=== PATIENT | female | born 1955 | race Caucasian/White ===

== ENCOUNTER 2018-06-05 18:38 | Inpatient (IN) | payer OTHER, MEDICAID ==
[~2018-06-05] VITALS: Ht 165.1 cm; Wt 75.9 kg
[~2018-06-05 18:38] MED LIST: GABA300C; HYDR25TA4; LEVO125T59; NOR10T
[2018-06-05] MEDS ORDERED: ACETYLCYSTEINE IV ONE (19:15)
[2018-06-05] MEDS ORDERED: D5W 5% IV ONE (19:15)
[2018-06-05] MEDS ORDERED: SODIUM CHLORIDE 0.9% 1,000 ML IV ONE (19:15)
[2018-06-05 19:47] LABS: Basophils # (auto) 0.1 uL; Basophils % (auto) 0.4 % (0.0-2.0); Eosinophils # (auto) 0.2 uL; Eosinophils % (auto) 1.3 % (0.0-7.0); Hematocrit 45.3 % (36.0-46.0); Hemoglobin 15.2 g/dL (12.2-16.2); Lymphocytes % (auto) 20.2 % (10.0-50.0); Mean Corpuscular Hemoglobin 32.3 pg (28.0-32.0); Mean Corpuscular Hgb Conc. 33.5 g/dL (32.0-36.0); Mean Corpuscular Volume 96.4 fL (80.0-100.0); Monocytes # (auto) 1.1 uL; Monocytes % (auto) 7.2 % (0.0-12.0); Neutrophils # (auto) 10.6 uL; Neutrophils % (auto) 70.9 % (37.0-80.0); Platelet Count (auto) 219 10^3/uL (140-450); Red Cell Distribution Width 14.3 % (11.8-14.3); White Blood Cell 14.9 10^3/uL (4.4-10.8)
[2018-06-05 19:55] LABS: Urine Bacteria FEW /hpf (None Seen); Urine Blood Negative /uL (Negative); Urine Mucus FEW (None Seen); Urine Specific Gravity 1.009 (1.001-1.035); Urine WBC 14 /hpf (0 - 5)
[2018-06-05 20:03] LABS: Alanine Aminotransferase 54 U/L (13-56); Albumin 4.3 g/dL (3.4-5.0); Anion Gap 9 (5-15); Aspartate Aminotransferase 45 U/L (15-37); Blood Alcohol < 3.0 mg/dL (0-5); Blood Urea Nitrogen 21 mg/dL (7-18); Calcium 9.7 mg/dL (8.5-10.1); Carbon Dioxide 26 mmol/L (21-32); Chloride 103 mmol/L (98-107); Glucose 153 mg/dL (74-106); Magnesium 2.1 mg/dL (1.6-2.6); Potassium 3.1 mmol/L (3.5-5.1); Sodium 138 mmol/L (136-145)
[2018-06-05 20:06] LABS: Alcohol, Urine < 3.0 mg/dL (0-5); Amphetamine Screen, Urine NEGATIVE (NEGATIVE); Barbiturate Scree,Urine NEGATIVE (NEGATIVE); Benzodiazephine Screen, Urine NEGATIVE (NEGATIVE); Cannabinoid Screen, Urine POSITIVE (NEGATIVE); Cocaine Screen, Urine NEGATIVE (NEGATIVE); Opiate Scree,Urine NEGATIVE (NEGATIVE); Phencyclidine Screen, Urine NEGATIVE (NEGATIVE)
[2018-06-05 20:08] LABS: Alkaline Phosphatase 107 U/L (45-117); BUN/Creatinine Ratio 16.7; Bilirubin, Total 0.4 mg/dL (0.2-1.0); GFR African American 55 mL/min; GFR Non-African American 46 mL/min; Total Protein 8.5 g/dL (6.4-8.2)
[2018-06-05 20:18] LABS: Salicylate 4.6 mg/dL (2.8-20.0)
[2018-06-05 20:19] LABS: Acetaminophen < 2.0 ug/mL (10-30)
[2018-06-05 20:20] LABS: Lactic Acid w/Reflex 2.9 mmol/L (0.4-2.0)
[2018-06-05] MEDS: LORazepam 2MG/ML-1ML VIAL IV PRN (21:09)
[2018-06-06] MEDS ORDERED: cefTRIAXone 1GM/50ML D5W 50 ML IV ONE (00:45)
[2018-06-06] MEDS ORDERED: ONDANSETRON HCL 4 MG/2 ML VIAL IV PRN (04:30)
[2018-06-06] MEDS: SODIUM CHLORIDE 0.9% 1,000 ML IV SCH (04:46)
[2018-06-06] MEDS ORDERED: POTASSIUM CHL 20MEQ/100ML 100 ML IV ONE (05:30)
[2018-06-06 05:45] VITALS: BP 157/78
[2018-06-06] MEDS: LEVOTHYROXINE SODIUM 50 MCG TAB PO SCH (06:15)
[2018-06-06 08:00] VITALS: BP 149/90
[2018-06-06] MEDS ORDERED: CYCL1TAB18 PO (08:46)
[2018-06-06] MEDS ORDERED: NORT25CA PO (08:46)
[2018-06-06] MEDS ORDERED: HYDR25TA4 PO (08:46)
[2018-06-06] MEDS ORDERED: PANT40TA2 PO (08:46)
[2018-06-06] MEDS ORDERED: HYDR-4683 PO (08:46)
[2018-06-06] MEDS ORDERED: DOCU100T15 PO (08:46)
[2018-06-06] MEDS ORDERED: LEVO150T10 PO (08:46)
[2018-06-06] MEDS ORDERED: PREG75CA PO (08:46)
[2018-06-06] MEDS ORDERED: OMEG1CAP59 PO (08:46)
[2018-06-06] MEDS ORDERED: PAR20T PO (08:46)
[2018-06-06 09:33] LABS: Basophils # (auto) 0.1 uL; Basophils % (auto) 0.7 % (0.0-2.0); Eosinophils # (auto) 0.1 uL; Eosinophils % (auto) 0.9 % (0.0-7.0); Hematocrit 43.3 % (36.0-46.0); Hemoglobin 14.6 g/dL (12.2-16.2); Lymphocytes # (auto) 2.7 uL; Lymphocytes % (auto) 28.6 % (10.0-50.0); Mean Corpuscular Hemoglobin 32.1 pg (28.0-32.0); Mean Corpuscular Hgb Conc. 33.6 g/dL (32.0-36.0); Mean Corpuscular Volume 95.5 fL (80.0-100.0); Monocytes # (auto) 0.9 uL; Neutrophils # (auto) 5.6 uL; Neutrophils % (auto) 59.8 % (37.0-80.0); Platelet Count (auto) 197 10^3/uL (140-450); Red Blood Cells 4.53 10^6/uL (4.0-5.20); White Blood Cell 9.3 10^3/uL (4.4-10.8)
[2018-06-06 09:47] LABS: Calcium 8.9 mg/dL (8.5-10.1); Potassium 3.3 mmol/L (3.5-5.1)
[2018-06-06] MEDS: ACETAMINOPHEN 500 MG TAB PO PRN (12:55)
[2018-06-06 13:00] VITALS: BP 143/80
[2018-06-06 15:37] LABS: Albumin 3.5 g/dL (3.4-5.0); Bilirubin, Direct 0.1 mg/dL (0-0.2)
[2018-06-06 15:40] LABS: Bilirubin, Total 0.5 mg/dL (0.2-1.0); Total Protein 7.2 g/dL (6.4-8.2)
[2018-06-06] MEDS ORDERED: HCTZ 25 MG TAB PO ONE (16:00)
[2018-06-06 17:00] VITALS: BP 130/77
[2018-06-06] MEDS: cefTRIAXone 1GM/50ML D5W 50 ML IV SCH (21:08)
[2018-06-06 21:30] VITALS: BP 130/85
[2018-06-06] MEDS: LORazepam 2MG/ML-1ML VIAL IV PRN (22:11)
[2018-06-07] MEDS: SODIUM CHLORIDE 0.9% 1,000 ML IV SCH (00:30)
[2018-06-07 05:00] VITALS: BP 121/77
[2018-06-07 06:21] LABS: Albumin 3.7 g/dL (3.4-5.0); Calcium 9.3 mg/dL (8.5-10.1); Magnesium 2.6 mg/dL (1.6-2.6); Potassium 3.7 mmol/L (3.5-5.1)
[2018-06-07 06:28] LABS: Bilirubin, Total 0.4 mg/dL (0.2-1.0); Total Protein 7.8 g/dL (6.4-8.2)
[2018-06-07] MEDS: LEVOTHYROXINE SODIUM 50 MCG TAB PO SCH (06:35)
[2018-06-07 09:00] VITALS: BP 122/78
[2018-06-07] MEDS: HCTZ 25 MG TAB PO SCH (09:47)
[2018-06-07 13:00] VITALS: BP 138/82
[2018-06-07 17:00] VITALS: BP 147/93
[2018-06-07] MEDS: ACETAMINOPHEN 500 MG TAB PO PRN (19:53)
[2018-06-07] MEDS: LORazepam 2MG/ML-1ML VIAL IV PRN (21:13)
[2018-06-07] MEDS: cefTRIAXone 1GM/50ML D5W 50 ML IV SCH (21:13)
[2018-06-08 06:02] VITALS: BP 108/64
[2018-06-08] MEDS: LEVOTHYROXINE SODIUM 50 MCG TAB PO SCH (06:31)
[2018-06-08 06:59] LABS: Albumin 3.5 g/dL (3.4-5.0); Bilirubin, Direct 0.1 mg/dL (0-0.2); Bilirubin, Total 0.4 mg/dL (0.2-1.0); Total Protein 7.6 g/dL (6.4-8.2)
[2018-06-08 08:30] VITALS: BP 146/93
[2018-06-08] MEDS: HCTZ 25 MG TAB PO SCH (09:29)
[2018-06-08] MEDS: ACETAMINOPHEN 500 MG TAB PO PRN ×2 (10:53→21:02)
[2018-06-08 12:00] VITALS: BP 135/74
[2018-06-08 16:00] VITALS: BP 143/95
[2018-06-08] MEDS: cefTRIAXone 1GM/50ML D5W 50 ML IV SCH (21:01)
[2018-06-08] MEDS: LORazepam 2MG/ML-1ML VIAL IV PRN (21:02)
[2018-06-08 22:00] VITALS: BP 107/77
[2018-06-08] MEDS: DOCUSATE SOD 100 MG CAP PO SCH (23:18)
[2018-06-09 05:40] VITALS: BP 136/81
[2018-06-09] MEDS: LEVOTHYROXINE SODIUM 50 MCG TAB PO SCH (06:10)
[2018-06-09 07:11] LABS: Basophils # (auto) 0.1 uL; Basophils % (auto) 0.9 % (0.0-2.0); Eosinophils # (auto) 0.4 uL; Eosinophils % (auto) 5.3 % (0.0-7.0); Hematocrit 47.6 % (36.0-46.0); Hemoglobin 16.3 g/dL (12.2-16.2); Lymphocytes # (auto) 2.7 uL; Lymphocytes % (auto) 31.7 % (10.0-50.0); Mean Corpuscular Hgb Conc. 34.2 g/dL (32.0-36.0); Mean Corpuscular Volume 96.4 fL (80.0-100.0); Monocytes # (auto) 0.9 uL; Monocytes % (auto) 10.7 % (0.0-12.0); Neutrophils # (auto) 4.3 uL; Neutrophils % (auto) 51.4 % (37.0-80.0); Nucleated Red Blood Cells % 0.1 %; Platelet Count (auto) 203 10^3/uL (140-450); Red Blood Cells 4.94 10^6/uL (4.0-5.20); Red Cell Distribution Width 13.8 % (11.8-14.3); White Blood Cell 8.4 10^3/uL (4.4-10.8)
[2018-06-09 07:35] LABS: BUN/Creatinine Ratio 16.4; Calcium 9.4 mg/dL (8.5-10.1); Potassium 3.2 mmol/L (3.5-5.1)
[2018-06-09] MEDS: LORazepam 2MG/ML-1ML VIAL IV PRN ×2 (08:00→21:24)
[2018-06-09 08:30] VITALS: BP 127/93
[2018-06-09 09:00] VITALS: BP 127/93
[2018-06-09] MEDS: HCTZ 25 MG TAB PO SCH (09:06)
[2018-06-09] MEDS: DOCUSATE SOD 100 MG CAP PO SCH ×2 (09:06→21:25)
[2018-06-09] MEDS ORDERED: POTASSIUM CHL 20 Meq TABLET PO ONE (12:45)
[2018-06-09 13:00] VITALS: BP 141/89
[2018-06-09] MEDS: ACETAMINOPHEN 500 MG TAB PO PRN ×2 (15:27→21:24)
[2018-06-09 17:00] VITALS: BP 138/80
[2018-06-09] MEDS: cefTRIAXone 1GM/50ML D5W 50 ML IV SCH (21:24)
[2018-06-09 22:00] VITALS: BP 118/74
[2018-06-10 05:00] VITALS: BP 124/77
[2018-06-10 06:32] LABS: BUN/Creatinine Ratio 21.6; Calcium 9.4 mg/dL (8.5-10.1); Potassium 3.8 mmol/L (3.5-5.1)
[2018-06-10] MEDS: LEVOTHYROXINE SODIUM 50 MCG TAB PO SCH (06:45)
[2018-06-10] MEDS: ACETAMINOPHEN 500 MG TAB PO PRN ×2 (06:45→21:41)
[2018-06-10 08:50] VITALS: BP 117/90
[2018-06-10] MEDS: HCTZ 25 MG TAB PO SCH (11:23)
[2018-06-10] MEDS: DOCUSATE SOD 100 MG CAP PO SCH ×2 (11:24→21:41)
[2018-06-10 13:55] VITALS: BP 115/78
[2018-06-10] MEDS: LORazepam 2MG/ML-1ML VIAL IV PRN ×2 (14:02→21:41)
[2018-06-10] MEDS: SODIUM CHLORIDE 0.9% 1,000 ML IV SCH (14:08)
[2018-06-10 22:00] VITALS: BP 118/78
[2018-06-11 05:00] VITALS: BP 157/82
[2018-06-11 05:21] VITALS: BP 112/54
[2018-06-11] MEDS: LEVOTHYROXINE SODIUM 50 MCG TAB PO SCH (06:45)
[2018-06-11 07:44] LABS: BUN/Creatinine Ratio 22.1; Calcium 9.5 mg/dL (8.5-10.1)
[2018-06-11 09:00] VITALS: BP 149/95
[2018-06-11] MEDS: DOCUSATE SOD 100 MG CAP PO SCH ×2 (11:30→22:27)
[2018-06-11] MEDS: HCTZ 25 MG TAB PO SCH (11:30)
[2018-06-11 13:00] VITALS: BP 113/89
[2018-06-11 17:00] VITALS: BP 123/83
[2018-06-11] MEDS: ACETAMINOPHEN 500 MG TAB PO PRN ×2 (17:10→23:24)
[2018-06-11 20:00] VITALS: BP 157/82
[2018-06-11] MEDS: LORazepam 2MG/ML-1ML VIAL IV PRN (22:27)
[2018-06-12] MEDS: SODIUM CHLORIDE 0.9% 1,000 ML IV SCH (04:27)
[2018-06-12 05:00] VITALS: BP 121/69
[2018-06-12] MEDS: LEVOTHYROXINE SODIUM 50 MCG TAB PO SCH (06:42)
[2018-06-12 08:00] VITALS: BP 155/91
[2018-06-12 09:00] VITALS: BP 155/91
[2018-06-12] MEDS: DOCUSATE SOD 100 MG CAP PO SCH (09:37)
[2018-06-12] MEDS: HCTZ 25 MG TAB PO SCH (09:37)
[2018-06-12 12:59] VITALS: BP 144/93
[2018-06-12 16:08] VITALS: BP 144/93
== END 2018-06-12 17:27 | disposition home or self-care (01) | DRG 917 ==
LOC: EDBD 18:38 → ER 18:44 → TELE 18:45 → TELE-WESTW 06-06 05:45 → WEST WING 06-12 12:58
PROVIDERS: ADMIT Nurse Practitioner Family; ATTEND Internal Medicine
DX: T48.1X2A Poisoning by skeletal muscle relaxants [neuromuscular blocking agents], intentional self-harm, initial encounter (principal); G92 Toxic encephalopathy; N17.0 Acute kidney failure with tubular necrosis; N39.0 Urinary tract infection, site not specified; E87.6 Hypokalemia; E03.9 Hypothyroidism, unspecified; R73.9 Hyperglycemia, unspecified; F32.9 Major depressive disorder, single episode, unspecified; F41.9 Anxiety disorder, unspecified; F43.20 Adjustment disorder, unspecified; I10 Essential (primary) hypertension; E86.0 Dehydration; F43.10 Post-traumatic stress disorder, unspecified; Z90.710 Acquired absence of both cervix and uterus; Y92.89 Other specified places as the place of occurrence of the external cause; Z88.5 Allergy status to narcotic agent; Z88.8 Allergy status to other drugs, medicaments and biological substances; Z90.49 Acquired absence of other specified parts of digestive tract; Z79.899 Other long term (current) drug therapy
CPT/HCPCS: 36415; 36600; 51702; 70450; 71045; 72125; 80048; 80053; 80076; 80307; 80320; 80329; 81001; 82140; 82805; 83605; 83735; 84132; 84443; 84484; 85025; 87040; 87077; 87086; 87186; 93005; 96361; 96365; 96375; A4565; A6257; G0378; J0696; J3480; J7060

== ENCOUNTER 2024-08-25 17:40 | Inpatient (IN) | payer OTHER ==
[~2024-08-25] VITALS: Ht 160 cm; Wt 56.7 kg
[~2024-08-25 17:40] MED LIST changes: +DOCU100T15 PO; -GABA300C; +HYDR-4833 PO; -HYDR25TA4; +HYDR25TA4 PO; -LEVO125T59; +LEVO150T10 PO; -NOR10T; +NORT25CA PO; +OMEG1CAP59 PO; +PANT40TA2 PO; +PAR20T PO; +PREG75CA PO
--- NOTE | 2024-08-25 18:20 | ED.PDOC ---
GI ASSESSMENT HPI Comments 68 Y F brought in by ambulance with PMHX of HLD and HTN presents to the ED for CC of abdominal pain. Patient states, that she has been experiencing abdominal pain with associated symptoms of nausea, vomiting, and diarrhea x1week. Patient denies dark stool, dysuria, hematuria, constipation, or hematemesis. Chief Complaint: Abdominal Pain Time Seen by MD: 18:00 Primary Care Provider: ADAM Reviewed Notes: Nurses Notes, Medications, Allergies (Allergies listed above) Allergies: Coded Allergies: Codeine (Verified Allergy, Mild, 12/10/10) Morphine (Verified Allergy, Mild, 12/10/10) Home Meds Reported Medications Pregabalin (Lyrica) 75 Mg Cap, 75 MG PO TID, CAP 06/06/18 Pantoprazole Sodium Sesquihydr (Protonix) 40 Mg Tab, 40 MG PO DAILY, #30 TAB 06/06/18 Levothyroxine Sodium (Levothyroxine Sodium) 150 Mcg Tab, 150 MCG PO QAM for 30 Days 06/06/18 Nortriptyline Hcl (PAMELOR CAPSULE) 25 Mg Cp, 1 CAP PO QPM, #30 CAP 3 Refills 06/06/18 Docusate Sodium (Docusate Sodium) 100 Mg Tab, 100 MG PO DAILYP PRN for FOR CONSTIPATION for 30 Days, MG 06/06/18 Lee-3 Fatty Acids (Lee 3 500 500 mg) 1 Cap Cap, 2 CAP PO DAILY, CAP 06/06/18 Paroxetine (PAXIL TABLET) 20 Mg Tb, 1 TAB PO DAILY, #30 TAB 5 Refills 30 mg daily 06/06/18 Hydrocodone-Acetaminophen (Waldron 5/325MG) 1 Tab Tb, 1 TAB PO TID for pain, #90 TAB 06/06/18 Hydrochlorothiazide (Hydrochlorothiazide) 25 Mg Tab, 25 MG PO DAILY for 30 Days, MG 06/06/18 Past Medical History PAST MEDICAL HISTORY: Cancer, COPD, High Lipids, HTN, Thyroid Past Medical History (Other): hepatitis c Surgical History: Cholecystectomy, Hysterectomy [employer] History: No Pertinent [employer] History Family History Family History: Pt Confused Social History Smoker: Non-Smoker Alcohol: Denies ETOH Use Drugs: Marijuana Lives In: Home Constitutional: denies: chills, diaphoresis, fatigue, fever, malaise, sweats, weakness, others EENTM: denies: blurred vision, double vision, ear bleeding, ear discharge, ear drainage, ear pain, ear ringing, eye pain, eye redness, hearing loss, mouth pain, mouth swelling, nasal discharge, nose bleeding, nose congestion, nose pain, photophobia, tearing, throat pain, throat swelling, voice changes, others Respiratory: denies: cough, hemoptysis, orthopnea, SOB at rest, shortness of breath, SOB with excertion, stridor, wheezing, others Cardiovascular: denies: chest pain, dizzy spells, diaphoresis, Dyspnea on exertion, edema, irregular heart beat, left arm pain, lightheadedness, palpitations, PND, syncope, others Gastrointestinal: reports: abdominal pain, diarrhea, nausea, vomiting; denies: abdomen distended, blood streaked bowels, constipated, dysphagia, difficulty swallowing, hematemesis, melena, poor appetite, poor fluid intake, rectal bleeding, rectal pain, others Genitourinary: denies: abnormal vagina bleeding, burning, dyspareunia, dysuria, flank pain, frequency, hematuria, incontinence, pain, , vagina discharge, urgency, others Neurological: denies: dizziness, fainting, headache, left sided numbness, left sided weakness, numbness, paresthesia, pre-existing deficit, right sided numbness, right sided weakness, seizure, speech problems, tingling, tremors, weakness, others Musculoskeletal: denies: back pain, gout, joint pain, joint swelling, muscle pain, muscle stiffness, neck pain, others Integumetry: denies: bruises, change in color, change in hair/nails, dryness, laceration, lesions, lumps, rash, wounds, others Allergic/Immunocompromised: denies: Difficulty Healing, Frequent Infections, Hives, Itching, others Hematologic/Lymphatic: denies: anemia, blood clots, easy bleeding, easy bruising, swollen glands, others Endocrine: denies: excessive hunger, excessive sweating, excessive thirst, excessive urination, flushing, intolerance to cold, intolerance to heat, unexplained weight gain, unexplained weight loss, others Psychiatric: denies: anxiety, bipolar disorder, depression, hopeless, panic disorder, schizophrenia, sleepless, suicidal, others All Other Systems: Reviewed and Negative Physical Exam General Appearance: Moderate Distress, Obese HEENT: Normal ENT Inspection, Pharynx Normal, TMs Normal Neck: Full Range of Motion, Non-Tender, Normal, Normal Inspection Respiratory: Chest Non-Tender, Lungs Clear, No Accessory Muscle Use, No Respiratory Distress, Normal Breath Sounds Cardiovascular: No Edema, No JVD, No Murmur, No Gallop, Normal Peripheral Pulses, Regular Rate/Rhythm Breast Exam: Deferred Gastrointestinal: Diffuse, No Organomegaly, No Pulsatile Mass, Normal Bowel Sounds, Soft, Tenderness Genitalia: Deferred Pelvic: Deferred Rectal: Deferred Extremities: No calf tenderness, Normal capillary refill, Normal inspection, Normal range of motion, Non-tender, No pedal edema Musculoskeletal : Apperance: Normal Neurologic: Alert, rice drier operator II-XII nml as Tested, No Motor Deficits, Normal Affect, Normal Mood, No Sensory Deficits Cerebellar Function: Normal Reflexes: Normal Skin: Dry, Normal Color, Warm Lymphatic: No Adenopathy Was a procedure done? Was a procedure done?: No GI differential Dx Differential Diagnosis: Cholangitis, Cholecystitis, Gastritis/PUD, Gastroenteritis, Urolithiasis, Electrolyte Imbalance, Food Poisoning, Bacterial, Viral X-Ray, Labs, Meds, VS Vital Signs Date Time Temp Pulse Resp B/P (MAP) Pulse Ox O2 Delivery O2 Flow Rate FiO2 08/25/24 18:24 98.9 72 18 136/84 (101) 96 Lab Test 08/25/24 19:16 Range/Units White Blood Count 9.4 4.4-10.8 10^3/uL Red Blood Count 4.84 4.0-5.20 10^6/uL Hemoglobin 16.1 12.2-16.2 g/dL Hematocrit 46.8 H 36.0-46.0 % Mean Corpuscular Volume 96.6 80.0-100.0 fL Mean Corpuscular Hemoglobin 33.2 H 28.0-32.0 pg Mean Corpuscular Hemoglobin Concent 34.4 32.0-36.0 g/dL Red Cell Distribution Width 13.9 11.8-14.3 % Platelet Count 226 140-450 10^3/uL Mean Platelet Volume 10.0 6.9-10.8 fL Neutrophils (%) (Auto) 50.3 37.0-80.0 % Lymphocytes (%) (Auto) 39.1 10.0-50.0 % Monocytes (%) (Auto) 8.4 0.0-12.0 % Eosinophils (%) (Auto) 1.7 0.0-7.0 % Basophils (%) (Auto) 0.5 0.0-2.0 % Neutrophils # (Auto) 4.7 1.6-8.6 10 ^3/uL Lymphocytes # (Auto) 3.7 0.4-5.4 10 ^3/uL Monocytes # (Auto) 0.8 0-1.3 10 ^3/uL Eosinophils # (Auto) 0.2 0-0.8 10 ^3/uL Basophils # (Auto) 0.1 0-0.2 10 ^3/uL Nucleated Red Blood Cells 0.1 % Sodium Level 135 L 136-145 mmol/L Potassium Level 3.8 3.5-5.1 mmol/L Chloride Level 100 98-107 mmol/L Carbon Dioxide Level 28 20-31 mmol/L Anion Gap 7 5-15 Blood Urea Nitrogen 17 9-23 mg/dL Creatinine 1.27 H 0.550-1.02 mg/dL Glomerular Filtration Rate Calc 46 >90 mL/min BUN/Creatinine Ratio 13.4 10.0-20.0 Serum Glucose 105 74-106 mg/dL Calcium Level 11.2 H 8.7-10.4 mg/dL Total Bilirubin 0.6 0.2-1.0 mg/dL Aspartate Amino Transferase (AST) 35 13-40 U/L Alanine Aminotransferase (ALT) 37 7-40 U/L Alkaline Phosphatase 89 46-116 U/L Total Protein 7.1 5.7-8.2 g/dL Albumin 4.8 3.2-4.8 g/dL Lipase 29 12-53 U/L CT ABD PEL: FINDINGS: Lower Thorax: Linear bibasilar scarring or atelectasis. Normal-sized heart. Mitral annular calcifications. Partially imaged moderate right coronary artery calcifications. Liver and Biliary system: Normal-sized liver without definite lesion. Prior cholecystectomy. No biliary ductal dilatation. Spleen: Unremarkable. Adrenal Glands and Kidneys: Normal adrenal glands. Mild atrophy of the left kidney compared to the right. There is no hydronephrosis or nephrolithiasis. Pancreas and Retroperitoneum: Atrophic pancreas. No retroperitoneal lymphadenopa thy. Aorta and Major Vessels: There is marked calcified plaque in the abdominal aorta. Moderate calcified plaque in the bilateral common iliac arteries. Aortoiliac vessels are normal in caliber. Bowel, Mesentery and Peritoneal space: Normal caliber small and large bowel. Prior appendectomy. There is no free air or fluid collection. There is a wide mouth left lateral abdominal wall hernia containing nonobstructed loops of small bowel ( series 2, image 43 and coronal image 46) Pelvis: Urinary bladder is mildly distended. Prior hysterectomy. There is no pelvic lymphadenopathy. Abdominal wall and Osseous Structures: There is bony demineralization. Multilevel lower thoracic and lumbar spondylosis. No destructive osseous lesion. IMPRESSION: 1. No bowel obstruction, fluid collection, or free air. Prior appendectomy. 2. Wide mouth left lateral abdominal wall hernia containing nonobstructed loops of small bowel. 3. Partially imaged moderate right coronary artery calcifications. ATED BY: NONI MORENO MD DICTATED DATE/TIME: 08/25/241932 The patient's CBC is within normal limits The chemistry panel is within normal limits The patient was being admitted with a diagnosis of abdominal pain unknown etiology Images Reviewed?: Images reviewed and evaluated by me Time of 1ST Reevaluation: 18:30 Reevaluation 1ST: Unchanged Patient Education/Counseling: Diagnosis, Treatment, Prognosis Family Education/Counseling: No Family Present Departure 1 Departure Time of Disposition: 20:48 Impression: Primary Impression: Intractable abdominal pain Additional Impression: Abdominal pain of unknown etiology Disposition: 09 ADMITTED INPATIENT Admit to: Med Surg Condition: Fair Critical Care Note Critical Care Time?: No Stability Stability form required: Yes Unstable for transfer: ED Physician Assesment (Clinical assesment) Heart Score Heart Score: Heart Score Response (Comments) Value History N/A 0 EKG N/A 0 Age N/A 0 Risk Factors N/A 0 Troponin N/A 0 Total 0 I personally scribed for SOTERO CORONADO MD ([email or web address]) on 08/25/24 at 18:20. Electronically submitted by Promise Zamudio ([email or web address]). I personally scribed for SOTERO CORONADO MD ([email or web address]) on 08/25/24 at 18:22. Electronically submitted by Promise Zamudio ([email or web address]). I personally scribed for SOTERO CORONADO MD ([email or web address]) on 08/25/24 at 19:58. Electronically submitted by Promise Zamudio ([email or web address]). SOTERO CORONADO MD Aug 25, 2024 18:20
[2024-08-25 19:29] LABS: Basophils # (auto) 0.1 10 ^3/uL (0-0.2); Basophils % (auto) 0.5 % (0.0-2.0); Eosinophils # (auto) 0.2 10 ^3/uL (0-0.8); Eosinophils % (auto) 1.7 % (0.0-7.0); Hematocrit 46.8 % (36.0-46.0); Hemoglobin 16.1 g/dL (12.2-16.2); Lymphocytes # (auto) 3.7 10 ^3/uL (0.4-5.4); Lymphocytes % (auto) 39.1 % (10.0-50.0); Mean Corpuscular Hemoglobin 33.2 pg (28.0-32.0); Mean Corpuscular Hgb Conc. 34.4 g/dL (32.0-36.0); Mean Corpuscular Volume 96.6 fL (80.0-100.0); Monocytes # (auto) 0.8 10 ^3/uL (0-1.3); Monocytes % (auto) 8.4 % (0.0-12.0); Neutrophils # (auto) 4.7 10 ^3/uL (1.6-8.6); Neutrophils % (auto) 50.3 % (37.0-80.0); Nucleated Red Blood Cells % 0.1 %; Platelet Count (auto) 226 10^3/uL (140-450); Red Blood Cells 4.84 10^6/uL (4.0-5.20); Red Cell Distribution Width 13.9 % (11.8-14.3); White Blood Cell 9.4 10^3/uL (4.4-10.8)
--- NOTE | 2024-08-25 19:36 | DVH ---
CLINICAL HISTORY: Abdominal pain TECHNIQUE: CT of the abdomen and pelvis was performed without intravenous contrast. This exam was per formed according to our departmental dose optimization program. Up-to-date CT equipment and radiation dose reduction techniques are utilized as appropriate. CTDI: [CTDIvol] DLP: 658.85 WID: COMPARISON: None FINDINGS: Lower Thorax: Linear bibasilar scarring or atelectasis. Normal-sized heart. Mitral annular calcifica tions. Partially imaged moderate right coronary artery calcifications. Liver and Biliary system: Normal-sized liver without definite lesion. Prior cholecystectomy. No bili brittnee ductal dilatation. Spleen: Unremarkable. Adrenal Glands and Kidneys: Normal adrenal glands. Mild atrophy of the left kidney compared to the ri ght. There is no hydronephrosis or nephrolithiasis. Pancreas and Retroperitoneum: Atrophic pancreas. No retroperitoneal lymphadenopathy. Aorta and Major Vessels: There is marked calcified plaque in the abdominal aorta. Moderate calcified plaque in the bilateral common iliac arteries. Aortoiliac vessels are normal in caliber. Bowel, Mesentery and Peritoneal space: Normal caliber small and large bowel. Prior appendectomy. Ther e is no free air or fluid collection. There is a wide mouth left lateral abdominal wall hernia contai lawanda nonobstructed loops of small bowel ( series 2, image 43 and coronal image 46) Pelvis: Urinary bladder is mildly distended. Prior hysterectomy. There is no pelvic lymphadenopathy. Abdominal wall and Osseous Structures: There is bony demineralization. Multilevel lower thoracic and lumbar spondylosis. No destructive osseous lesion. IMPRESSION: 1. No bowel obstruction, fluid collection, or free air. Prior appendectomy. 2. Wide mouth left lateral abdominal wall hernia containing nonobstructed loops of small bowel. 3. Partially imaged moderate right coronary artery calcifications.
[2024-08-25 19:47] LABS: Alanine Aminotransferase 37 U/L (7-40); Alkaline Phosphatase 89 U/L (46-116); Anion Gap 7 (5-15); Aspartate Aminotransferase 35 U/L (13-40); BUN/Creatinine Ratio 13.4 (10.0-20.0); Blood Urea Nitrogen 17 mg/dL (9-23); Carbon Dioxide 28 mmol/L (20-31); Chloride 100 mmol/L (98-107); Glucose 105 mg/dL (74-106); Lipase 29 U/L (12-53); Potassium 3.8 mmol/L (3.5-5.1)
[2024-08-25 19:48] LABS: Bilirubin, Total 0.6 mg/dL (0.2-1.0); Total Protein 7.1 g/dL (5.7-8.2)
[2024-08-25 19:58] LABS: Albumin 4.8 g/dL (3.2-4.8); Calcium 11.2 mg/dL (8.7-10.4); Sodium 135 mmol/L (136-145)
[2024-08-25] MEDS ORDERED: NITROGLYCERIN 0.4 MG SL TAB SL PRN (21:30)
[2024-08-25] MEDS ORDERED: HYDROMORPHONE HCL 1 MG/ML INJ IV PRN (21:30)
[2024-08-25] MEDS ORDERED: TEMAZEPAM 15 MG CAP PO PRN (21:30)
[2024-08-25] MEDS ORDERED: ACETAMINOPHEN 325 MG TAB PO PRN (21:30)
[2024-08-25] MEDS ORDERED: DOCUSATE SOD 100 MG CAP PO PRN (21:30)
--- NOTE | 2024-08-25 21:33 | DVHHP2 ---
Admitting Diagnosis: abdominal pain History of Present Illness 68 yo female patient with hx of HLD and HTN c/o abdominal pain with associated nausea, vomiting, and diarrhea x 1 week. While in the emergency department the patient was evaluated by the provider, As per provider: Labs, vital signs, and imagining monitored. Patient will be admitted for further evaluation and treatment. I discussed admission with the patient/family and is in agreement to treatment p rosita. Patient Family History: Patient reports no known family medical history. Allergies: Coded Allergies: Codeine (Verified Allergy, Mild, 12/10/10) Morphine (Verified Allergy, Mild, 12/10/10) Home Meds Reported Medications Oxycodone W/ Acetaminophen (Percocet 5/325MG) 1 Tab Tb, 1 TAB PO TID, #90 TAB 08/27/24 Trazodone Hcl (Trazodone Hcl) 50 Mg Tab, 50 MG PO, MG 08/27/24 Pregabalin (Lyrica) 75 Mg Cap, 75 MG PO TID, CAP 06/06/18 Pantoprazole Sodium Sesquihydr (Protonix) 40 Mg Tab, 40 MG PO DAILY, #30 TAB 06/06/18 Levothyroxine Sodium (Levothyroxine Sodium) 150 Mcg Tab, 150 MCG PO QAM for 30 Days 06/06/18 Nortriptyline Hcl (PAMELOR CAPSULE) 25 Mg Cp, 1 CAP PO QPM, #30 CAP 3 Refills 06/06/18 Docusate Sodium (Docusate Sodium) 100 Mg Tab, 100 MG PO DAILYP PRN for FOR CONSTIPATION for 30 Days, MG 06/06/18 Hancock-3 Fatty Acids (Hancock 3 500 500 mg) 1 Cap Cap, 2 CAP PO DAILY, CAP 06/06/18 Paroxetine (PAXIL TABLET) 20 Mg Tb, 1 TAB PO DAILY, #30 TAB 5 Refills 30 mg daily 06/06/18 Hydrochlorothiazide (Hydrochlorothiazide) 25 Mg Tab, 25 MG PO DAILY for 30 Days, MG 06/06/18 Current Medications Current Medications Medications (Trade) Dose Ordered Sig/Broderick Route PRN Reason Start Time Stop Time Status Last Admin Paroxetine HCl (Paxil Tablet) 20 mg DAILY PO 08/27/24 10:00 08/27/24 09:31 Patient Own Medication 150 mcg QAM PO 08/27/24 07:00 UNV Levothyroxine Sodium (Synthroid Tablet) 100 mcg QAM PO 08/27/24 07:00 08/27/24 06:14 Levothyroxine Sodium (Synthroid Tablet) 50 mcg QAM PO 08/27/24 07:00 08/27/24 06:14 Ceftriaxone Sodium 50 ml @ 100 mls/hr DAILY@09 IV 08/27/24 09:00 08/27/24 09:31 Melatonin (Melatonin) 5 mg HS PO 08/27/24 22:00 Cancel Melatonin (Melatonin) 5 mg HS PO 08/26/24 23:00 08/26/24 23:18 Trazodone HCl (Desyrel) 50 mg HS PO 08/27/24 01:00 08/27/24 01:02 Review of Systems Constitutional: denies chills, denies fever, denies malaise Eyes: denies eye pain, denies vision change ENT: denies ear pain, denies headache, denies nasal congestion, denies painful swallowing, denies voice change Cardiovascular: denies chest pain, denies edema, denies orthopnea, denies palpitations, denies paroxysmal nocturnal dyspnea Respiratory: denies cough, denies shortness of breath Gastrointestinal: denies constipation, denies diarrhea, denies nausea, denies vomiting Genitourinary: denies dysuria, denies frequent urination, denies urethral discharge Musculoskeletal: denies back pain, denies joint pain, denies muscle pain Skin: denies bruising, denies itching, denies rash Neurological: denies focal weakness, denies headache, denies sensory changes Psychiatric: denies anxiety, denies depression Endocrine: denies polydipsia, denies polyuria Hematologic/Lymphatic: denies easy bleeding, denies easy bruising, denies enlarged lymph nodes Allergic/Immunologic: denies allergy, denies hives Vital Signs Vital Signs Date Time Temp Pulse Resp B/P (MAP) Pulse Ox O2 Delivery O2 Flow Rate FiO2 08/27/24 15:00 78 18 120/70 08/27/24 13:34 94 08/27/24 13:16 Nasal Cannula 2.0 08/27/24 13:04 97.7 97.7 08/27/24 08:00 21 Physical Exam General Appearance: alert, no distress HEENT: EOMI, PERRLA, normal external inspect of ears, no icterus, no nasal drainage Neck: no carotid bruit, no jugular venous distention (JVD), no lymphadenopathy Chest: normal thorax Respiratory: clear to auscultation, normal air movement Cardiovascular: regular rate and rhythm, no diastolic murmur, no jugular venous distention (JVD), no rub, no systolic murmur Abdominal: soft, no hepatomegaly, no mass, no splenomegaly, no tenderness Genitourinary: grossly normal external Musculoskeletal: no joint tenderness, no swelling Extremities: normal pulses, no calf tenderness, no clubbing, no cyanosis, no edema Skin: no bruising, no jaundice, no rash Neurological: alert, No focal deficit Results Labs Test 08/27/24 10:30 08/27/24 08:35 08/26/24 15:24 08/26/24 12:10 Range/Units White Blood Count 7.7 # 4.4-10.8 10^3/uL Red Blood Count 4.35 4.0-5.20 10^6/uL Hemoglobin 14.7 12.2-16.2 g/dL Hematocrit 42.4 36.0-46.0 % Mean Corpuscular Volume 97.5 80.0-100.0 fL Mean Corpuscular Hemoglobin 33.8 H 28.0-32.0 pg Mean Corpuscular Hemoglobin Concent 34.7 32.0-36.0 g/dL Red Cell Distribution Width 14.0 11.8-14.3 % Platelet Count 182 140-450 10^3/uL Mean Platelet Volume 9.9 6.9-10.8 fL Neutrophils (%) (Auto) 48.5 37.0-80.0 % Lymphocytes (%) (Auto) 35.3 10.0-50.0 % Monocytes (%) (Auto) 9.9 0.0-12.0 % Eosinophils (%) (Auto) 5.1 0.0-7.0 % Basophils (%) (Auto) 1.2 0.0-2.0 % Neutrophils # (Auto) 3.7 1.6-8.6 10 ^3/uL Lymphocytes # (Auto) 2.7 0.4-5.4 10 ^3/uL Monocytes # (Auto) 0.8 0-1.3 10 ^3/uL Eosinophils # (Auto) 0.4 0-0.8 10 ^3/uL Basophils # (Auto) 0.1 0-0.2 10 ^3/uL Nucleated Red Blood Cells 0.0 % Prothrombin Time 10.8 9.3-11.8 sec Prothrombin Time INR 1.02 0.9-1.15 Activated Partial Thromboplast Time 28.8 24.5-34.5 SEC Sodium Level 139 # 136-145 mmol/L Potassium Level 3.6 3.5-5.1 mmol/L Chloride Level 103 98-107 mmol/L Carbon Dioxide Level 30 20-31 mmol/L Anion Gap 6 5-15 Blood Urea Nitrogen 13 9-23 mg/dL Creatinine 1.34 H 0.550-1.02 mg/dL Glomerular Filtration Rate Calc 43 >90 mL/min BUN/Creatinine Ratio 9.7 L 10.0-20.0 Serum Glucose 107 H 74-106 mg/dL Calcium Level 10.4 8.7-10.4 mg/dL Troponin I High Sensitivity 18 </=34 ng/L Lactic Acid Level 1.3 0.4-2.0 mmol/L Thyroxine (T4) 10.4 4.5-12.0 ug/dL Test 08/26/24 10:25 08/26/24 05:26 08/25/24 19:16 Range/Units Urine Color Light-yellow Yellow Urine Clarity Clear Clear Urine pH 6.0 5.0-9.0 Urine Specific Mcgregor 1.012 1.001-1.035 Urine Protein Negative Negative Urine Ketones 1+ H Negative Urine Blood Trace H Negative /uL Urine Nitrite Negative Negative Urine Bilirubin Negative Negative Urine Urobilinogen Normal Negative mg/dL Urine Leukocyte Esterase 3+ Negative /uL Urine RBC 2 0 - 4 /hpf Urine WBC 82 0 - 5 /hpf Urine Squamous Epithelial Cells Few <5 /hpf Urine Bacteria None seen None Seen /hpf Urine Hyaline Casts Few 0 - 2 /lpf Urine Mucus Few None Seen Urine Glucose Normal Normal mg/dL Urine Opiates Screen Neg NEGATIVE Urine Fentanyl Screen Neg NEGATIVE Urine Barbiturates Screen Neg NEGATIVE Urine Phencyclidine Screen Neg NEGATIVE Urine Amphetamines Screen Neg NEGATIVE Urine Benzodiazepines Screen Neg NEGATIVE Urine Cocaine Screen Neg NEGATIVE Urine Cannabinoids Screen Pos NEGATIVE Total Bilirubin 0.5 0.2-1.0 mg/dL Aspartate Amino Transferase (AST) 35 13-40 U/L Alanine Aminotransferase (ALT) 31 7-40 U/L Alkaline Phosphatase 81 46-116 U/L Total Protein 6.7 5.7-8.2 g/dL Albumin 4.4 3.2-4.8 g/dL Thyroid Stimulating Hormone (TSH) 2.13 0.55-4.78 uIU/mL Free Triiodothyronine (T3) pg/mL 2.10 L 2.3-4.2 pg/mL Plasma/Serum Blood Alcohol < 3.0 <10 mg/dL Lipase 29 12-53 U/L Microbiology Date/Time Source Procedure Growth Status 08/26/24 10:25 Voided Urine Urine Culture - Preliminary Resulted Plan 1. Abdominal pain related to possible cyclic vomiting syndrome cannabis hyperemesis Monitor, GI consult, clear liquid diet, IV fluids 2. Abdominal hernia Monitor, surgical consult 3. HLD Monitor, resume home meds, DVT prophylaxis 4. COPD Monitor, resume home meds 5. CAD Monitor, resume home meds 6. Hypothyroid Monitor, PPI Plan discussed with: Patient, Other TRISTAN KELLEY NP Aug 25, 2024 21:33
[2024-08-25] MEDS: ONDANSETRON HCL 4 MG/2 ML VIAL IV ONE (23:30)
[2024-08-25] MEDS: MORPHINE SULFATE 4 MG/ML SYR/VIAL IV ONE (23:30)
[2024-08-26] MEDS: SODIUM CHLORIDE 0.9% 500 ML IVB ONE (01:11)
[2024-08-26] MEDS: KETOROLAC TROMETH 30 MG/ML 1ML VIAL IV ONE (02:58)
[2024-08-26] MEDS: FAMOTIDINE (10MG/ML) 2ML VL IV ONE (02:58)
[2024-08-26 03:20] VITALS: PULSE 71; RESP 16; O2SAT 96
[2024-08-26 06:06] LABS: Basophils # (auto) 0.1 10 ^3/uL (0-0.2); Basophils % (auto) 0.6 % (0.0-2.0); Eosinophils # (auto) 0.1 10 ^3/uL (0-0.8); Eosinophils % (auto) 1.1 % (0.0-7.0); Hematocrit 42.1 % (36.0-46.0); Hemoglobin 14.4 g/dL (12.2-16.2); Lymphocytes # (auto) 3.8 10 ^3/uL (0.4-5.4); Lymphocytes % (auto) 32.4 % (10.0-50.0); Mean Corpuscular Hemoglobin 33.5 pg (28.0-32.0); Mean Corpuscular Hgb Conc. 34.2 g/dL (32.0-36.0); Monocytes % (auto) 8.4 % (0.0-12.0); Neutrophils # (auto) 6.8 10 ^3/uL (1.6-8.6); Neutrophils % (auto) 57.5 % (37.0-80.0); Platelet Count (auto) 210 10^3/uL (140-450); Red Blood Cells 4.29 10^6/uL (4.0-5.20); Red Cell Distribution Width 14.1 % (11.8-14.3); White Blood Cell 11.8 10^3/uL (4.4-10.8)
[2024-08-26 06:40] LABS: Alanine Aminotransferase 31 U/L (7-40); Albumin 4.4 g/dL (3.2-4.8); Alkaline Phosphatase 81 U/L (46-116); Anion Gap 8 (5-15); Aspartate Aminotransferase 35 U/L (13-40); BUN/Creatinine Ratio 9.6 (10.0-20.0); Bilirubin, Total 0.5 mg/dL (0.2-1.0); Blood Urea Nitrogen 13 mg/dL (9-23); Calcium 10.2 mg/dL (8.7-10.4); Carbon Dioxide 24 mmol/L (20-31); Chloride 102 mmol/L (98-107)
[2024-08-26 06:41] LABS: Glucose 109 mg/dL (74-106); Potassium 3.2 mmol/L (3.5-5.1); Sodium 134 mmol/L (136-145); Total Protein 6.7 g/dL (5.7-8.2)
[2024-08-26 09:01] VITALS: BP 155/80; PULSE 67; RESP 16; TEMP 97.9; O2SAT 98
[2024-08-26] MEDS: PANTOPRAZOLE 40 MG/10 ML VIAL INJ IV SCH (09:27)
[2024-08-26] MEDS: ENOXAPARIN SOD 40 MG/0.4 ML SYRINGE SC SCH (09:28)
[2024-08-26] MEDS: ONDANSETRON HCL 4 MG/2 ML VIAL IV PRN (09:28)
[2024-08-26] MEDS: HYDROMORPHONE HCL 1 MG/ML INJ IV PRN (09:29)
[2024-08-26 10:50] VITALS: BP 161/72; PULSE 73; PULSE 81; RESP 18; RESP 20; TEMP 98.2; O2SAT 95; O2SAT 96
[2024-08-26 11:38] LABS: Urine Bacteria None Seen /hpf (None Seen)
--- NOTE | 2024-08-26 11:45 | DVHCONRES ---
Date Seen: Aug 26, 2024 Resident Creating Document: CARMEN LANDERS RESIDENT Referring Physician Admitting team. Reason for Consultation Abdominal Pain. History of Present Illness Ms. Hearn, a 68-year-old female with past medical history significant for hypertension, hyperlipidemia, COPD, CAD, hypothyroidism, anxiety disorder, osteoarthritis, back pain, GERD, previous hepatitis-C, history of cancer, cholecystectomy and hysterectomy came with 1 week of epigastric spastic abdominal pain, nausea, vomiting, watery diarrhea for 1 week. Patient denies recent use of antibiotics, hematemesis, melena, dysuria, hematuria, constipation, fever or any other concerning features. As per patient, last colonoscopy roughly 10 years ago, result and follow up recommendation patient could not remember. Lipase negative, labs unremarkable, CT abdomen pelvis unremarkable as well. Follows PCP Dr. Tanner no recent GI outpatient visit. Past Medical History hypertension, hyperlipidemia, CAD, COPD, hypothyroidism, anxiety disorder, osteoarthritis, back pain, GERD, previous hepatitis-C, history of cancer, abdominal wall hernia Past Surgical History cholecystectomy, appendicectomy and hysterectomy Family History: Patient reports no known family medical history. Family History Noncontributory Social History Patient denies present use of alcohol, recreational drugs or tobacco but uses marijuana, lives at home with family. UDS pending Allergies: Coded Allergies: Codeine (Verified Allergy, Mild, 12/10/10) Morphine (Verified Allergy, Mild, 12/10/10) Home Meds Reported Medications Pregabalin (Lyrica) 75 Mg Cap, 75 MG PO TID, CAP 06/06/18 Pantoprazole Sodium Sesquihydr (Protonix) 40 Mg Tab, 40 MG PO DAILY, #30 TAB 06/06/18 Levothyroxine Sodium (Levothyroxine Sodium) 150 Mcg Tab, 150 MCG PO QAM for 30 Days 06/06/18 Nortriptyline Hcl (PAMELOR CAPSULE) 25 Mg Cp, 1 CAP PO QPM, #30 CAP 3 Refills 06/06/18 Docusate Sodium (Docusate Sodium) 100 Mg Tab, 100 MG PO DAILYP PRN for FOR CONSTIPATION for 30 Days, MG 06/06/18 [place]-3 Fatty Acids ([place] 3 500 500 mg) 1 Cap Cap, 2 CAP PO DAILY, CAP 06/06/18 Paroxetine (PAXIL TABLET) 20 Mg Tb, 1 TAB PO DAILY, #30 TAB 5 Refills 30 mg daily 06/06/18 Hydrocodone-Acetaminophen ([place] 5/325MG) 1 Tab Tb, 1 TAB PO TID for pain, #90 TAB 06/06/18 Hydrochlorothiazide (Hydrochlorothiazide) 25 Mg Tab, 25 MG PO DAILY for 30 Days, MG 06/06/18 Current Medications Current Medications Medications (Trade) Dose Ordered Sig/Broderick Route PRN Reason Start Time Stop Time Status Last Admin Temazepam (Restoril) 15 mg QHSP PRN PO FOR INSOMNIA 08/25/24 21:30 Ondansetron HCl (Zofran) 4 mg Q4HP PRN IV NAUSEA / VOMITING 08/25/24 21:30 08/26/24 09:28 Docusate Sodium (Colace Capsule) 100 mg BIDPRN PRN PO FOR CONSTIPATION 08/25/24 21:30 Enoxaparin Sodium (Lovenox) 40 mg DAILY SC 08/26/24 10:00 08/26/24 09:28 Acetaminophen (Tylenol Tablet) 650 mg Q6HP PRN PO PAIN SCALE 1-3 OR TEMP>100.4 08/25/24 21:30 Pantoprazole Sodium (Protonix) 40 mg DAILY IV 08/26/24 10:00 08/26/24 09:27 Nitroglycerin (Ntrostat Sublingual) 0.4 mg Q5MINP PRN SL FOR CHEST PAIN 08/25/24 21:30 Hydromorphone HCl (Dilaudid Innjection) 0.5 mg Q4HP PRN IV PAIN SCALE 7 THRU 10 08/25/24 21:30 08/26/24 01:09 DC Hydromorphone HCl (Dilaudid Innjection) 0.5 mg Q4HPRN PRN IV PAIN SCALE 7 THRU 10 08/26/24 01:00 08/26/24 09:29 Review of Systems CONSTITUTIONAL: Fever, night sweats, weight loss, Lymphadenopathy, ecchymoses, fatigue, skin rash HEENT: Vision change, eye pain, Rhinorrhea, sinus pain, epistaxis, dysphagia, odynophagia, globus sensation, Change in hearing, tinnitus, vertigo, otalgia, Dental problems, oral ulcers or lesions: : Negative ENDOCRINE: Weight change, heat or cold intolerance, tremor, insomnia, neck pain or swelling, Polyuria, polydipsia, polyphagia, Abnormal hair growth, change in nails: Negative CARDIOVASCULAR: Chest pain, palpitations, syncope, Edema, cyanosis, claudication, Orthopnea, paroxysmal nocturnal dyspnea: Negative PULMONARY: Shortness of breath, dyspnea with exertion, Cough, hemoptysis, wheezing, chest pain : Negative GI: Change in appetite: Negative Nausea, vomiting, diarrhea, melena, hematochezia, abdominal pain, change in bowel habits or stools: Positive : Dysuria, frequency, urgency, Urinary incontinence, hematuria, foamy urine, nocturia, Change in libido, erectile dysfunction, Change in menses, dysmenorrhea, dyspaerunia, pelvic pain: : Negative MUSCULOSKELETAL: Joint swelling or pain, muscle pain, back pain: : Negative NEUROLOGIC: Headache, scotoma, Change in smell or taste, change in facial muscles, Muscle weakness, paresthesias, anesthesia, Ataxia, change in speech: Negative Vital Signs Vital Signs Date Time Temp Pulse Resp B/P (MAP) Pulse Ox O2 Delivery O2 Flow Rate FiO2 08/26/24 10:18 97.9 67 16 155/80 (105) 98 97.9 08/26/24 08:15 Room Air* 0 21 Physical Exam GENERAL APPEARANCE: Well developed, well nourished, alert and cooperative, and appears to be in no acute distress. Mildly confused, poor historian. ABDOMEN: Dry Oral mucosa, Positive bowel sounds. Soft, mildly distended, epigastric local tenderness. No guarding or rebound. No masses. Per rectal exam deferred as patient is in the public area. FOBT ordered. SKIN: Skin normal color, texture and turgor with no lesions or eruptions. CARDIAC: Normal S1 and S2. No S3, S4 or murmurs. Rhythm is regular. There is no peripheral edema, cyanosis or pallor. Extremities are warm and well perfused. Capillary refill is less than 2 seconds. No carotid bruits. LUNGS: Clear to auscultation and percussion without rales, rhonchi, wheezing or diminished breath sounds. MUSKULOSKELETAL: Adequately aligned spine. ROM intact spine and extremities. No joint erythema or tenderness. Normal muscular development. Normal gait. EXTREMITIES: No significant deformity or joint abnormality. No edema. Peripheral pulses intact. No varicosities. NEUROLOGICAL: CN II-XII intact. Strength and sensation symmetric and intact throughout. Reflexes 2+ throughout. Cerebellar testing normal. Labs/Diagnostic Data Labs Test 08/26/24 05:26 08/25/24 19:16 Range/Units White Blood Count 11.8 #H 4.4-10.8 10^3/uL Red Blood Count 4.29 4.0-5.20 10^6/uL Hemoglobin 14.4 12.2-16.2 g/dL Hematocrit 42.1 # 36.0-46.0 % Mean Corpuscular Volume 98.0 80.0-100.0 fL Mean Corpuscular Hemoglobin 33.5 H 28.0-32.0 pg Mean Corpuscular Hemoglobin Concent 34.2 32.0-36.0 g/dL Red Cell Distribution Width 14.1 11.8-14.3 % Platelet Count 210 140-450 10^3/uL Mean Platelet Volume 10.1 6.9-10.8 fL Neutrophils (%) (Auto) 57.5 37.0-80.0 % Lymphocytes (%) (Auto) 32.4 10.0-50.0 % Monocytes (%) (Auto) 8.4 0.0-12.0 % Eosinophils (%) (Auto) 1.1 0.0-7.0 % Basophils (%) (Auto) 0.6 0.0-2.0 % Neutrophils # (Auto) 6.8 1.6-8.6 10 ^3/uL Lymphocytes # (Auto) 3.8 0.4-5.4 10 ^3/uL Monocytes # (Auto) 1.0 0-1.3 10 ^3/uL Eosinophils # (Auto) 0.1 0-0.8 10 ^3/uL Basophils # (Auto) 0.1 0-0.2 10 ^3/uL Nucleated Red Blood Cells 0.0 % Sodium Level 134 L 136-145 mmol/L Potassium Level 3.2 L 3.5-5.1 mmol/L Chloride Level 102 98-107 mmol/L Carbon Dioxide Level 24 20-31 mmol/L Anion Gap 8 5-15 Blood Urea Nitrogen 13 9-23 mg/dL Creatinine 1.35 H 0.550-1.02 mg/dL Glomerular Filtration Rate Calc 43 >90 mL/min BUN/Creatinine Ratio 9.6 L 10.0-20.0 Serum Glucose 109 H 74-106 mg/dL Calcium Level 10.2 8.7-10.4 mg/dL Total Bilirubin 0.5 0.2-1.0 mg/dL Aspartate Amino Transferase (AST) 35 13-40 U/L Alanine Aminotransferase (ALT) 31 7-40 U/L Alkaline Phosphatase 81 46-116 U/L Total Protein 6.7 5.7-8.2 g/dL Albumin 4.4 3.2-4.8 g/dL Lipase 29 12-53 U/L Assessment GI Assessment/impression: hypertension, hyperlipidemia, COPD, hypothyroidism, anxiety disorder, osteoarthritis, back pain, GERD, previous hepatitis-C, history of cancer, abdominal wall hernia PSH: cholecystectomy, appendicectomy and hysterectomy # possible cyclic vomiting syndrome # possible viral gastroenteritis # possible peptic ulcer disease # watery diarrhea # abdominal hernia: wide mouth left lateral abdominal wall hernia containing nonobstructed loops of small bowel # GERD # likely UTI # hyponatremia, mild # hypokalemia, mild # GENTRY due to VMN # mild leukocytosis could be due to stress # essential hypertension # hyperlipidemia # COPD # hypothyroidism # osteoarthritis # back pain # surgical history of appendectomy, cholecystectomy and hysterectomy Plan/Recommendation Plan: # Medications: Continue home medications as tolerated. Pantoprazole 40 mg IV daily to continue. Check QTC and if not concerning please continue q.4 IV ondansetron for now. Adequate fluid resuscitation with IV Ringer lactate 100 cc/hour to continue with close I&O. Pain control as per primary team. # Labs: Daily CBC and CMP. Check for TSH, free T3-T4, UDS, blood alcohol, stool for occult blood from WBC, bacterial culture, ova parasite and C diff. Check lactic acid to rule out chronic/acute ischemia of GI tract. Also given older age and female sex to rule out ACS with serial troponin and 12 lead EKG. # Procedure: Inpatient EGD, keep the patient NPO overnight, tomorrow morning by Dr. Murrell. Outpatient colonoscopy for screening purposes. Presumably no need of in-hospital procedure. # Daily serial abdominal examination: Look for red flags of guarding, surgical abdomen, pain out of proportion, rebound tenderness. # Others: please avoid NSAIDs, alcohol, spicy, highly acidic and caustic diets. abstinence from marijuana or at least cut down. # please scheduled follow up with GI as outpatient with Dr. Murrell. Thank you so much for the opportunity to consult on your patient. GI team will follow the patient. In case of any questions or concerns please feel free to reach out. Case an action plan discussed with Dr. Verena Murrell. Complex care planning needed total 47 minutes of detailed discussion. The patient and caregiver team agreed to the plan. Plan discussed with: Patient, Other (Primary team.) CARMEN LANDERS RESIDENT Aug 26, 2024 11:45
[2024-08-26] MEDS: LACTATED RINGER'S 1,000 ML IV SCH (11:51)
[2024-08-26 12:00] LABS: Opiate Scree,Urine Neg (NEGATIVE); Phencyclidine Screen, Urine Neg (NEGATIVE)
[2024-08-26 12:01] LABS: Amphetamine Screen, Urine Neg (NEGATIVE); Barbiturate Scree,Urine Neg (NEGATIVE); Benzodiazephine Screen, Urine Neg (NEGATIVE); Cannabinoid Screen, Urine Pos (NEGATIVE); Cocaine Screen, Urine Neg (NEGATIVE)
[2024-08-26 12:11] LABS: Urine Blood TRACE /uL (Negative); Urine Clarity Clear (Clear); Urine Color Light-Yellow (Yellow); Urine Hyaline Cast FEW /lpf (0 - 2); Urine Mucus FEW (None Seen); Urine Protein, UAD Negative (Negative); Urine Specific Gravity 1.012 (1.001-1.035); Urine Squamous Epithelial Cell FEW /hpf (<5); Urine Urobilinogen Normal (Negative); Urine WBC 82 /hpf (0 - 5)
--- NOTE | 2024-08-26 12:33 | DVHPN2 ---
Progress Note - Dictate Date Seen: Aug 27, 2024 Medical Necessity Reason Pt with a Central, PICC or Fol: No vital signs Vital Sign Date Time Temp Pulse Resp B/P (MAP) Pulse Ox O2 Delivery O2 Flow Rate FiO2 08/26/24 10:18 97.9 67 16 155/80 (105) 98 97.9 08/26/24 08:15 Room Air* 0 21 Total Intake and Output 08/25/24 08/25/24 08/26/24 15:00 23:00 07:00 Intake Total 500 ml Balance 500 ml medications Current Medications Medications Dose Ordered Sig/Broderick Route Start Time Stop Time Status Last Admin Dose Admin Ondansetron HCl 4 mg Q4HP PRN IV 08/25/24 21:30 08/26/24 09:28 4 MG Enoxaparin Sodium 40 mg DAILY SC 08/26/24 10:00 08/26/24 09:28 40 MG Acetaminophen 650 mg Q6HP PRN PO 08/25/24 21:30 Pantoprazole Sodium 40 mg DAILY IV 08/26/24 10:00 08/26/24 09:27 40 MG Nitroglycerin 0.4 mg Q5MINP PRN SL 08/25/24 21:30 Hydromorphone HCl 0.5 mg Q4HPRN PRN IV 08/26/24 01:00 08/26/24 09:29 0.5 MG Lactated Ringer's 1,000 ml @ 100 mls/hr Q10H IV 08/26/24 11:30 08/26/24 11:51 100 MLS/HR Nortriptyline HCl 25 mg QPM PO 08/26/24 18:00 UNV Paroxetine HCl 20 mg DAILY PO 08/27/24 10:00 UNV Pregabalin 75 mg TID PO 08/26/24 14:00 UNV Patient Own Medication 150 mcg QAM PO 08/27/24 07:00 UNV objective General Appearance: alert, no distress HEENT: EOMI, PERRLA, normal external inspect of ears, no icterus, no nasal drainage Neck: no carotid bruit, no jugular venous distention (JVD), no lymphadenopathy Chest: normal thorax Respiratory: clear to auscultation, normal air movement Cardiovascular: regular rate and rhythm, no diastolic murmur, no jugular venous distention (JVD), no rub, no systolic murmur Abdominal: soft, no hepatomegaly, no mass, no splenomegaly, no tenderness Genitourinary: grossly normal external Musculoskeletal: no joint tenderness, no swelling Extremities: normal pulses, no calf tenderness, no clubbing, no cyanosis, no edema Skin: no bruising, no jaundice, no rash Neurological: alert, No focal deficit laboratory and microbiology Laboratory Tests 08/26/24 05:26 Test 08/26/24 05:26 Range/Units Serum Glucose 109 H 74-106 mg/dL Problem List 1. Abdominal pain related to possible cyclic vomiting syndrome cannabis hyperemesis Monitor, GI consult, clear liquid diet, IV fluids 2. Abdominal hernia Monitor, surgical consult 3. HLD Monitor, resume home meds, DVT prophylaxis 4. COPD Monitor, resume home meds 5. CAD Monitor, resume home meds 6. Hypothyroid Monitor, PPI Assessment/Plan Subjective Patient is awake and alert. Objective Patient is still having some nausea. Patient was admitted for intractable abdominal pain most likely from gastritis versus cannabis hyperemesis syndrome. Patient did test positive for cannabis. She states she smokes it on occasion or from underlying abdominal hernia. Patient was seen by gastroenterology. Patient was started on PPI and IV fluids. Plan Continue current treatment. Continue antiemetics as needed and surgical consult. Patient states she has had her hernia for some time. Plan discussed with: Patient, Other TRISTAN KELLEY NP Aug 26, 2024 12:33
[2024-08-26 13:37] VITALS: BP 153/77; PULSE 80; RESP 17; TEMP 98.3; O2SAT 96
[2024-08-26] MEDS: PREGABALIN CAPSULE 75 MG CAP PO SCH (14:08)
[2024-08-26 16:14] VITALS: BP 172/82; PULSE 67; TEMP 98.3; O2SAT 97
[2024-08-26] MEDS: NORTRIPTYLINE HCL 25 MG CAP PO SCH (18:00)
[2024-08-26] MEDS: hydrALAZINE HCL 20 MG/ML VL IV PRN (18:23)
[2024-08-26 21:53] VITALS: BP 156/72; PULSE 73; RESP 18; O2SAT 95
[2024-08-26] MEDS: MELATONIN 5 MG TAB PO SCH (23:18)
[2024-08-27] VITALS (7 sets, daily range): BP systolic 126–161; BP diastolic 57–93; PULSE 77–88; RESP 12–18; TEMP 97.6–99; O2SAT 94–98
[2024-08-27] MEDS ORDERED: TRAZ-227 PO (00:18)
[2024-08-27] MEDS: traZODone HCL 50 MG TAB PO SCH (01:02)
[2024-08-27] MEDS ORDERED: PERCOT PO (03:55)
[2024-08-27] MEDS: LEVOTHYROXINE SODIUM 100 MCG TAB PO SCH (06:14)
[2024-08-27] MEDS: LEVOTHYROXINE SODIUM 50 MCG TAB PO SCH (06:14)
[2024-08-27] MEDS ORDERED: PATIENTS OWN MEDICATION (Levothyroxine Sodium 150 MCG) PO SCH (07:00)
--- NOTE | 2024-08-27 09:04 | DVH ---
CHEST RADIOGRAPH Indication: egd Technique: Single frontal view of the chest was obtained Comparison: None FINDINGS: Lines and Tubes: None Lungs: No focal consolidation. Pleura: No effusion. No pneumothorax. Cardiomediastinal contours: Unremarkable Bones: No acute osseous abnormality. IMPRESSION: No acute cardiopulmonary disease.
[2024-08-27 09:05] LABS: INR 1.02 (0.9-1.15); Partial Thromboplastin Time 28.8 SEC (24.5-34.5); Prothrombin Time 10.8 sec (9.3-11.8)
[2024-08-27] MEDS: cefTRIAXone 1GM/50ML D5W 50 ML IV SCH (09:31)
[2024-08-27] MEDS: PARoxetine 20 MG TAB PO SCH (09:31)
--- NOTE | 2024-08-27 09:56 | DVHPN2 ---
Progress Note - Dictate Date Seen: Aug 27, 2024 Medical Necessity Reason Pt with a Central, PICC or Fol: No vital signs Vital Sign Date Time Temp Pulse Resp B/P (MAP) Pulse Ox O2 Delivery O2 Flow Rate FiO2 08/27/24 06:44 166/72 08/27/24 03:10 98.2 81 18 96 98.2 08/26/24 10:50 Room Air* 0 21 Total Intake and Output 08/26/24 08/26/24 08/27/24 15:00 23:00 07:00 Intake Total 1000 ml Balance 1000 ml medications Current Medications Medications Dose Ordered Sig/Broderick Route Start Time Stop Time Status Last Admin Dose Admin Ondansetron HCl 4 mg Q4HP PRN IV 08/25/24 21:30 08/26/24 20:08 4 MG Enoxaparin Sodium 40 mg DAILY SC 08/26/24 10:00 08/26/24 09:28 40 MG Acetaminophen 650 mg Q6HP PRN PO 08/25/24 21:30 Pantoprazole Sodium 40 mg DAILY IV 08/26/24 10:00 08/27/24 09:31 40 MG Nitroglycerin 0.4 mg Q5MINP PRN SL 08/25/24 21:30 Hydromorphone HCl 0.5 mg Q4HPRN PRN IV 08/26/24 01:00 08/26/24 20:09 0.5 MG Lactated Ringer's 1,000 ml @ 100 mls/hr Q10H IV 08/26/24 11:30 08/27/24 02:49 100 MLS/HR Nortriptyline HCl 25 mg QPM PO 08/26/24 18:00 Paroxetine HCl 20 mg DAILY PO 08/27/24 10:00 08/27/24 09:31 20 MG Pregabalin 75 mg TID PO 08/26/24 14:00 08/27/24 06:15 75 MG Patient Own Medication 150 mcg QAM PO 08/27/24 07:00 UNV Levothyroxine Sodium 100 mcg QAM PO 08/27/24 07:00 08/27/24 06:14 100 MCG Levothyroxine Sodium 50 mcg QAM PO 08/27/24 07:00 08/27/24 06:14 50 MCG Ceftriaxone Sodium 50 ml @ 100 mls/hr DAILY@09 IV 08/27/24 09:00 08/27/24 09:31 100 MLS/HR Hydralazine HCl 10 mg Q6HPRN PRN IV 08/26/24 18:15 08/27/24 06:44 10 MG Melatonin 5 mg HS PO 08/27/24 22:00 Cancel Melatonin 5 mg HS PO 08/26/24 23:00 08/26/24 23:18 5 MG Trazodone HCl 50 mg HS PO 08/27/24 01:00 08/27/24 01:02 50 MG objective General Appearance: alert, no distress HEENT: EOMI, PERRLA, normal external inspect of ears, no icterus, no nasal drainage Neck: no carotid bruit, no jugular venous distention (JVD), no lymphadenopathy Chest: normal thorax Respiratory: clear to auscultation, normal air movement Cardiovascular: regular rate and rhythm, no diastolic murmur, no jugular venous distention (JVD), no rub, no systolic murmur Abdominal: soft, no hepatomegaly, no mass, no splenomegaly, no tenderness Musculoskeletal: no joint tenderness, no swelling Extremities: normal pulses, no calf tenderness, no clubbing, no cyanosis, no edema Skin: no bruising, no jaundice, no rash Neurological: alert, No focal deficit laboratory and microbiology Laboratory Tests 08/26/24 05:26 Test 08/26/24 05:26 Range/Units Serum Glucose 109 H 74-106 mg/dL Problem List 1. Abdominal pain related to possible cyclic vomiting syndrome cannabis hyperemesis Monitor, GI consult, clear liquid diet, IV fluids 2. Abdominal hernia Monitor, surgical consult 3. HLD Monitor, resume home meds, DVT prophylaxis 4. COPD Monitor, resume home meds 5. CAD Monitor, resume home meds 6. Hypothyroid Monitor, PPI Assessment/Plan Subjective Patient is awake and alert. Objective Patient is still very nauseated today. Patient was admitted on August 25, 2024 for intractable nausea and vomiting and abdominal pain, most likely from gastroenteritis or cannabis hyperemesis syndrome. Patient was seen by gastroenterology and they are now going to do upper endoscopy. Plan Patient to remain NPO. Patient scheduled for EGD today. Continue PPI and IV fluids. Plan discussed with: Patient, Other TRISTAN KELLEY NP Aug 27, 2024 09:56
[2024-08-27 10:17] LABS: Chloride 103 mmol/L (98-107); Potassium 3.6 mmol/L (3.5-5.1); Sodium 139 mmol/L (136-145)
[2024-08-27 10:18] LABS: Anion Gap 6 (5-15); Carbon Dioxide 30 mmol/L (20-31)
[2024-08-27 10:23] LABS: BUN/Creatinine Ratio 9.7 (10.0-20.0); Blood Urea Nitrogen 13 mg/dL (9-23); Calcium 10.4 mg/dL (8.7-10.4); Glucose 107 mg/dL (74-106)
[2024-08-27] MEDS ORDERED: SODIUM CHLORIDE LOCK 10 ML ONE (10:39)
[2024-08-27] MEDS ORDERED: diphenhdrAMINE HCL 50 MG/1 ML VL ONE (10:39)
[2024-08-27] MEDS ORDERED: MIDAZOLAM HCL 5 MG/ML-1ML VIAL ONE (10:39)
[2024-08-27] MEDS ORDERED: LIDOCAINE VISCOUS 2% 15ML UD ONE (10:39)
[2024-08-27] MEDS ORDERED: fentaNYL CITRATE 100 MCG/2 ML VL ONE ×2 (10:40→12:52)
[2024-08-27 10:55] LABS: Basophils # (auto) 0.1 10 ^3/uL (0-0.2); Basophils % (auto) 1.2 % (0.0-2.0); Eosinophils # (auto) 0.4 10 ^3/uL (0-0.8); Eosinophils % (auto) 5.1 % (0.0-7.0); Hematocrit 42.4 % (36.0-46.0); Hemoglobin 14.7 g/dL (12.2-16.2); Lymphocytes # (auto) 2.7 10 ^3/uL (0.4-5.4); Lymphocytes % (auto) 35.3 % (10.0-50.0); Mean Corpuscular Hemoglobin 33.8 pg (28.0-32.0); Mean Corpuscular Hgb Conc. 34.7 g/dL (32.0-36.0); Mean Corpuscular Volume 97.5 fL (80.0-100.0); Monocytes # (auto) 0.8 10 ^3/uL (0-1.3); Monocytes % (auto) 9.9 % (0.0-12.0); Neutrophils # (auto) 3.7 10 ^3/uL (1.6-8.6); Neutrophils % (auto) 48.5 % (37.0-80.0); Platelet Count (auto) 182 10^3/uL (140-450); Red Blood Cells 4.35 10^6/uL (4.0-5.20); White Blood Cell 7.7 10^3/uL (4.4-10.8)
--- NOTE | 2024-08-27 12:03 | DVHINCON2 ---
Date of service: Aug 27, 2024 Family History: Hypercholesterolemia G8 MOTHER G8 FATHER Hypertension G8 MOTHER G8 FATHER Allergies: Coded Allergies: Codeine (Verified Allergy, Mild, 12/10/10) Morphine (Verified Allergy, Mild, 12/10/10) Home Meds Reported Medications Oxycodone W/ Acetaminophen (P[place] 5/325MG) 1 Tab Tb, 1 TAB PO TID, #90 TAB 08/27/24 Trazodone Hcl (Trazodone Hcl) 50 Mg Tab, 50 MG PO, MG 08/27/24 Pregabalin (Lyrica) 75 Mg Cap, 75 MG PO TID, CAP 06/06/18 Pantoprazole Sodium Sesquihydr (Protonix) 40 Mg Tab, 40 MG PO DAILY, #30 TAB 06/06/18 Levothyroxine Sodium (Levothyroxine Sodium) 150 Mcg Tab, 150 MCG PO QAM for 30 Days 06/06/18 Nortriptyline Hcl (PAMELOR CAPSULE) 25 Mg Cp, 1 CAP PO QPM, #30 CAP 3 Refills 06/06/18 Docusate Sodium (Docusate Sodium) 100 Mg Tab, 100 MG PO DAILYP PRN for FOR CONSTIPATION for 30 Days, MG 06/06/18 [place]-3 Fatty Acids ([place] 3 500 500 mg) 1 Cap Cap, 2 CAP PO DAILY, CAP 06/06/18 Paroxetine (PAXIL TABLET) 20 Mg Tb, 1 TAB PO DAILY, #30 TAB 5 Refills 30 mg daily 06/06/18 Hydrochlorothiazide (Hydrochlorothiazide) 25 Mg Tab, 25 MG PO DAILY for 30 Days, MG 06/06/18 Current Medications Current Medications Medications (Trade) Dose Ordered Sig/Broder[place] Route PRN Reason Start Time Stop Time Status Last Admin Nortriptyline HCl ([place] Capsule) 25 mg QPM PO 08/26/24 18:00 Paroxetine HCl (Paxil Tablet) 20 mg DAILY PO 08/27/24 10:00 08/27/24 09:31 Pregabalin (Lyrica Capsule) 75 mg TID PO 08/26/24 14:00 08/27/24 06:15 Patient Own Medication 150 mcg QAM PO 08/27/24 07:00 UNV Levothyroxine Sodium (Synthroid Tablet) 100 mcg QAM PO 08/27/24 07:00 08/27/24 06:14 Levothyroxine Sodium (Synthroid Tablet) 50 mcg QAM PO 08/27/24 07:00 08/27/24 06:14 Ceftriaxone Sodium 50 ml @ 100 mls/hr DAILY@09 IV 08/27/24 09:00 08/27/24 09:31 Hydralazine HCl (Apresoline Injection) 10 mg Q6HPRN PRN IV SBP>150 08/26/24 18:15 08/27/24 06:44 Melatonin (Melatonin) 5 mg HS PO 08/27/24 22:00 Cancel Melatonin (Melatonin) 5 mg HS PO 08/26/24 23:00 08/26/24 23:18 Trazodone HCl (Desyrel) 50 mg HS PO 08/27/24 01:00 08/27/24 01:02 Vital Signs Vital Signs Date Time Temp Pulse Resp B/P (MAP) Pulse Ox O2 Delivery O2 Flow Rate FiO2 08/27/24 10:37 86 16 152/93 08/27/24 09:00 98.3 98 98.3 08/26/24 10:50 Room Air* 0 21 Labs/Diagnostic Data Labs Test 08/27/24 10:30 08/27/24 08:35 08/26/24 15:24 08/26/24 12:10 Range/Units White Blood Count 7.7 # 4.4-10.8 10^3/uL Red Blood Count 4.35 4.0-5.20 10^6/uL Hemoglobin 14.7 12.2-16.2 g/dL Hematocrit 42.4 36.0-46.0 % Mean Corpuscular Volume 97.5 80.0-100.0 fL Mean Corpuscular Hemoglobin 33.8 H 28.0-32.0 pg Mean Corpuscular Hemoglobin Concent 34.7 32.0-36.0 g/dL Red Cell Distribution Width 14.0 11.8-14.3 % Platelet Count 182 140-450 10^3/uL Mean Platelet Volume 9.9 6.9-10.8 fL Neutrophils (%) (Auto) 48.5 37.0-80.0 % Lymphocytes (%) (Auto) 35.3 10.0-50.0 % Monocytes (%) (Auto) 9.9 0.0-12.0 % Eosinophils (%) (Auto) 5.1 0.0-7.0 % Basophils (%) (Auto) 1.2 0.0-2.0 % Neutrophils # (Auto) 3.7 1.6-8.6 10 ^3/uL Lymphocytes # (Auto) 2.7 0.4-5.4 10 ^3/uL Monocytes # (Auto) 0.8 0-1.3 10 ^3/uL Eosinophils # (Auto) 0.4 0-0.8 10 ^3/uL Basophils # (Auto) 0.1 0-0.2 10 ^3/uL Nucleated Red Blood Cells 0.0 % Prothrombin Time 10.8 9.3-11.8 sec Prothrombin Time INR 1.02 0.9-1.15 Activated Partial Thromboplast Time 28.8 24.5-34.5 SEC Sodium Level 139 # 136-145 mmol/L Potassium Level 3.6 3.5-5.1 mmol/L Chloride Level 103 98-107 mmol/L Carbon Dioxide Level 30 20-31 mmol/L Anion Gap 6 5-15 Blood Urea Nitrogen 13 9-23 mg/dL Creatinine 1.34 H 0.550-1.02 mg/dL Glomerular Filtration Rate Calc 43 >90 mL/min BUN/Creatinine Ratio 9.7 L 10.0-20.0 Serum Glucose 107 H 74-106 mg/dL Calcium Level 10.4 8.7-10.4 mg/dL Troponin I High Sensitivity 18 </=34 ng/L Lactic Acid Level 1.3 0.4-2.0 mmol/L Thyroxine (T4) 10.4 4.5-12.0 ug/dL Test 08/26/24 10:25 08/26/24 05:26 08/25/24 19:16 Range/Units Urine Color Light-yellow Yellow Urine Clarity Clear Clear Urine pH 6.0 5.0-9.0 Urine Specific [place] 1.012 1.001-1.035 Urine Protein Negative Negative Urine Ketones 1+ H Negative Urine Blood Trace H Negative /uL Urine Nitrite Negative Negative Urine Bilirubin Negative Negative Urine Urobilinogen Normal Negative mg/dL Urine Leukocyte Esterase 3+ Negative /uL Urine RBC 2 0 - 4 /hpf Urine WBC 82 0 - 5 /hpf Urine Squamous Epithelial Cells Few <5 /hpf Urine Bacteria None seen None Seen /hpf Urine Hyaline Casts Few 0 - 2 /lpf Urine Mucus Few None Seen Urine Glucose Normal Normal mg/dL Urine Opiates Screen Neg NEGATIVE Urine Fentanyl Screen Neg NEGATIVE Urine Barbiturates Screen Neg NEGATIVE Urine Phencyclidine Screen Neg NEGATIVE Urine Amphetamines Screen Neg NEGATIVE Urine Benzodiazepines Screen Neg NEGATIVE Urine Cocaine Screen Neg NEGATIVE Urine Cannabinoids Screen Pos NEGATIVE Total Bilirubin 0.5 0.2-1.0 mg/dL Aspartate Amino Transferase (AST) 35 13-40 U/L Alanine Aminotransferase (ALT) 31 7-40 U/L Alkaline Phosphatase 81 46-116 U/L Total Protein 6.7 5.7-8.2 g/dL Albumin 4.4 3.2-4.8 g/dL Thyroid Stimulating Hormone (TSH) 2.13 0.55-4.78 uIU/mL Free Triiodothyronine (T3) pg/mL 2.10 L 2.3-4.2 pg/mL Plasma/Serum Blood Alcohol < 3.0 <10 mg/dL Lipase 29 12-53 U/L Microbiology Date/Time Source Procedure Growth Status 08/26/24 10:25 Voided Urine Urine Culture - Preliminary Resulted Assessment 68 YEAR OLD FEMALE WITH LEFT LATERAL ABDOMINAL WALL HERNIA WITHOUT ANY OBSTRUCTIVE SYMPTOMS OR FINDINGS OF OBSTRUCTION ON IMAGING, HERNIA NON TENDER, ABDOMEN NON DISTENDED, SGHE CAN RESUME PO INTAKE AND COME TO SEE ME IN THE OFFICE TO PLAN AN ELECTIVE REPAIR OF THE HERNIA ON OUTPATIENT BASIS, THERE IS NO INDICATION FOR EMERGENCY OPERATION AT THIS POINT Plan discussed with: Patient JOSE MUSE MD Aug 27, 2024 12:03
[2024-08-27] MEDS ORDERED: ePHEDrine SULFATE 50 MG/ML AMP ONE (12:59)
--- NOTE | 2024-08-27 13:07 | DVHOP2 ---
Operative Report DATE OF OPERATION: 08/27/24 PROCEDURE: Upper Endoscopy with biopsy. PREOPERATIVE INDICATION: The patient is a 68 -year-old female undergoing endoscopy for nausea vomiting and abdominal pain POSTOPERATIVE DIAGNOSES: 1. She had a 1 cm sliding-type hiatal hernia with slightly irregular squamocolumnar junction and extension of columnar epithelium into the distal esophagus for 1-2 cm from which biopsies were obtained 2. Rbfmtkly-lu-fseezd gastritis with some hyperemia erythema from which biopsies were obtained 3. Mild duodenitis of the duodenal bulb otherwise normal examination up to the 3rd part of the duodenum PROCEDURE PERFORMED BY: Bibiana Murrell GI NURSE: Kirsten SCOPE: Olympus videoendoscope. ASA CLASS: 3 PREOPERATIVE MEDICATIONS: Mac sedation, Dr. An PROCEDURE IN DETAIL: After obtaining an informed consent, the patient was placed on left lateral decubitus position. The patient was then sedated with the above medications. A bite block was placed between her teeth. The endoscope was then passed through the oropharynx, into the esophagus, and through the stomach and pylorus up to the second and third part of the duodenum. The endoscope was then withdrawn. Second and 3rd part of the duodenal were normal. Duodenal bulb showed mild duodenitis. Duodenal biopsies were obtained. The pre-pyloric area antrum and body showed knzztenm-do-fulvft gastritis with hyperemia erythema and some superficial erosions. Gastric biopsies were obtained. On retroflexion the fundus cardia and angularis were normal. The endoscope was then withdrawn into the distal esophagus. Patient had a 1 cm sliding-type hiatal hernia with slightly irregular squamocolumnar junction and extension of columnar epithelium into the distal esophagus were cm GE junction biopsies were obtained. The remaining distal and proximal esophagus and oropharynx were unremarkable The patient tolerated the procedure well without difficulty. COMPLICATIONS : None SPECIMENS: Duodenal biopsies Gastric biopsies GE junction biopsies DISPOSITION: Transfer back to the floor Stable PLAN: 1. Await for biopsy result 2. Will place pt on Protonix 40 mg bid 3. Carafate 1 g p.o. twice a day 4. Soft mechanical diet advance as tolerated 5. Patient is cleared for discharge from GI point of view and she can follow up in my office as an outpatient for elective colonoscopy BIBIANA MURRELL MD Aug 27, 2024 13:07
--- NOTE | 2024-08-27 14:23 | ECG ---
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
[2024-08-27] MEDS ORDERED: PROPOFOL 10 MG/ML 20 ML IV ONE (16:37)
[2024-08-27] MEDS ORDERED: MELATONIN 5 MG TAB PO SCH (22:00)
[2024-08-28 05:00] VITALS: BP 103/73; PULSE 57; RESP 18; TEMP 97.7; O2SAT 93
[2024-08-28 08:00] VITALS: PULSE 70
[2024-08-28 09:00] VITALS: BP 139/62; PULSE 68; RESP 18; TEMP 97.8; O2SAT 96
[2024-08-28 13:00] VITALS: BP 134/65; PULSE 68; RESP 20; TEMP 98.2; O2SAT 96
[2024-08-28] MEDS ORDERED: ZOFR4T PO (14:33)
[2024-08-28] MEDS ORDERED: PANT40TA2 PO (14:33)
[2024-08-28] MEDS ORDERED: SUCR1TAB31 OR (14:33)
--- NOTE | 2024-08-28 14:35 | DVHDS2 ---
Discharge Summary Date of Admission Aug 25, 2024 at 21:28 Date of Discharge: Aug 28, 2024 Labs/Diagnostic Data: Laboratory Results Test 08/28/24 10:00 08/27/24 10:30 08/27/24 08:35 08/26/24 15:24 Stool Occult Blood Negative (Negative) Stool Occult Blood Sample #3 (Negative) Stool for White Cells None seen White Blood Count 7.7 10^3/uL (4.4-10.8) Red Blood Count 4.35 10^6/uL (4.0-5.20) Hemoglobin 14.7 g/dL (12.2-16.2) Hematocrit 42.4 % (36.0-46.0) Mean Corpuscular Volume 97.5 fL (80.0-100.0) Mean Corpuscular Hemoglobin 33.8 pg (28.0-32.0) Mean Corpuscular Hemoglobin Concent 34.7 g/dL (32.0-36.0) Red Cell Distribution Width 14.0 % (11.8-14.3) Platelet Count 182 10^3/uL (140-450) Mean Platelet Volume 9.9 fL (6.9-10.8) Neutrophils (%) (Auto) 48.5 % (37.0-80.0) Lymphocytes (%) (Auto) 35.3 % (10.0-50.0) Monocytes (%) (Auto) 9.9 % (0.0-12.0) Eosinophils (%) (Auto) 5.1 % (0.0-7.0) Basophils (%) (Auto) 1.2 % (0.0-2.0) Neutrophils # (Auto) 3.7 10 ^3/uL (1.6-8.6) Lymphocytes # (Auto) 2.7 10 ^3/uL (0.4-5.4) Monocytes # (Auto) 0.8 10 ^3/uL (0-1.3) Eosinophils # (Auto) 0.4 10 ^3/uL (0-0.8) Basophils # (Auto) 0.1 10 ^3/uL (0-0.2) Nucleated Red Blood Cells 0.0 % Prothrombin Time 10.8 sec (9.3-11.8) Prothrombin Time INR 1.02 (0.9-1.15) Activated Partial Thromboplast Time 28.8 SEC (24.5-34.5) Sodium Level 139 mmol/L (136-145) Potassium Level 3.6 mmol/L (3.5-5.1) Chloride Level 103 mmol/L (98-107) Carbon Dioxide Level 30 mmol/L (20-31) Anion Gap 6 (5-15) Blood Urea Nitrogen 13 mg/dL (9-23) Creatinine 1.34 mg/dL (0.550-1.02) Glomerular Filtration Rate Calc 43 mL/min (>90) BUN/Creatinine Ratio 9.7 (10.0-20.0) Serum Glucose 107 mg/dL (74-106) Calcium Level 10.4 mg/dL (8.7-10.4) Troponin I High Sensitivity 18 ng/L (</=34) Test 08/26/24 12:10 08/26/24 10:25 08/26/24 05:26 08/25/24 19:16 Lactic Acid Level 1.3 mmol/L (0.4-2.0) Thyroxine (T4) 10.4 ug/dL (4.5-12.0) Urine Color Light-yellow (Yellow) Urine Clarity Clear (Clear) Urine pH 6.0 (5.0-9.0) Urine Specific [place] 1.012 (1.001-1.035) Urine Protein Negative (Negative) Urine Ketones 1+ (Negative) Urine Blood Trace /uL (Negative) Urine Nitrite Negative (Negative) Urine Bilirubin Negative (Negative) Urine Urobilinogen Normal mg/dL (Negative) Urine Leukocyte Esterase 3+ /uL (Negative) Urine RBC 2 /hpf (0 - 4) Urine WBC 82 /hpf (0 - 5) Urine Squamous Epithelial Cells Few /hpf (<5) Urine Bacteria None seen /hpf (None Seen) Urine Hyaline Casts Few /lpf (0 - 2) Urine Mucus Few (None Seen) Urine Glucose Normal mg/dL (Normal) Urine Opiates Screen Neg (NEGATIVE) Urine Fentanyl Screen Neg (NEGATIVE) Urine Barbiturates Screen Neg (NEGATIVE) Urine Phencyclidine Screen Neg (NEGATIVE) Urine Amphetamines Screen Neg (NEGATIVE) Urine Benzodiazepines Screen Neg (NEGATIVE) Urine Cocaine Screen Neg (NEGATIVE) Urine Cannabinoids Screen Pos (NEGATIVE) Total Bilirubin 0.5 mg/dL (0.2-1.0) Aspartate Amino Transferase (AST) 35 U/L (13-40) Alanine Aminotransferase (ALT) 31 U/L (7-40) Alkaline Phosphatase 81 U/L (46-116) Total Protein 6.7 g/dL (5.7-8.2) Albumin 4.4 g/dL (3.2-4.8) Thyroid Stimulating Hormone (TSH) 2.13 uIU/mL (0.55-4.78) Free Triiodothyronine (T3) pg/mL 2.10 pg/mL (2.3-4.2) Plasma/Serum Blood Alcohol < 3.0 mg/dL (<10) Lipase 29 U/L (12-53) Other Laboratory Tests 08/27/24 10:30 08/27/24 08:35 Brief Hx & Hospital Course: 68 yo female patient with hx of HLD and HTN c/o abdominal pain with associated nausea, vomiting, and diarrhea x 1 week. While in the emergency department the patient was evaluated by the provider, As per provider: Labs, vital signs, and imagining monitored. Patient was was admitted on August 25, 2024 for intractable nausea and vomiting and abdominal pain. Patient was seen by GI. Patient was positive for cannabis. Patient most likely has cannabis hyperemesis syndrome. Patient is status post EGD. Patient was found to have moderate to severe gastritis. Patient has a hiatal hernia and duodenum mild duodenitis. Patient was started on Protonix twice daily as well as Carafate 4 times a day. Patient will follow-up with GI outpatient in 1 to 2 weeks for biopsy results. Patient will follow-up with her PCP in 1 week. The patient received proper medical treatment and medications. Vital signs, Imaging and Laboratory Work was monitored daily. All consults recommendations were followed as provided. There were no complaints or new complaints upon discharge, all questions and concerns were answered. Patient was advised to return to the ER or call 911 if any headaches, dizziness, shortness of breath, chest pain, bleeding, fevers, or worsening of medical condition. Patient/Family was counseled about treatment plan, medications, possible side effects, patient verbalized understanding. All questions were answered to the best of my ability. The patient symptoms improved and they are okay to be DC. Condition at Discharge: Stable Final Diagnosis/Problems List gastritis, dudenitis intractable nausea and vomiting Discharge Disposition: Home Discharge Instruct/Medications Diet: Cardiac 2g Na,low cholest Activity: No Restrictions, As Tolerated Follow Up/Referral: pcp 1 week GI- f/u biopsy Medications: Protonix twice a day and Carafate 4 x a day Discharge Statement: "Patient was advised to return to the ER or call 911 if any headaches, dizziness, shortness of breath, chest pain, abdominal pain, bleeding, fevers, or worsening of medical condition. Patient was counseled about treatment plan, medications, possible side effects, patientverbalized understanding. All questions were answered to the best of my ability. This discharge took greater then 30 minutes in planning, reviewing documentation, counseling the patient, and discussing with other team members." ASSESSMENT ASSESSMENT Assessment gastritis, dudenitis intractable nausea and vomiting TRISTAN KELLEY NP Aug 28, 2024 14:35
[2024-08-28 15:26] VITALS: BP 139/62; PULSE 68; RESP 18; TEMP 97.8; O2SAT 96
--- NOTE | 2024-08-28 16:17 | DVHPN2 ---
Progress Note - Dictate Date Seen: Aug 28, 2024 Medical Necessity Reason Pt with a Central, PICC or Fol: No Subjective No new complaints Patient is stable and tolerating diet Abdominal pain has resolved EGD showed gastritis vital signs Vital Sign Date Time Temp Pulse Resp B/P (MAP) Pulse Ox O2 Delivery O2 Flow Rate FiO2 08/28/24 15:26 97.8 68 18 96 08/28/24 13:00 134/65 (88) 08/28/24 08:00 Room Air* 0 21 Total Intake and Output 08/27/24 08/27/24 08/28/24 15:00 23:00 07:00 Intake Total 60 ml 1250 ml 1150 ml Balance 60 ml 1250 ml 1150 ml medications Current Medications Medications Dose Ordered Sig/Broderick Route Start Time Stop Time Status Last Admin Dose Admin Ondansetron HCl 4 mg Q4HP PRN IV 08/25/24 21:30 08/27/24 10:36 4 MG Enoxaparin Sodium 40 mg DAILY SC 08/26/24 10:00 08/28/24 09:11 40 MG Acetaminophen 650 mg Q6HP PRN PO 08/25/24 21:30 Pantoprazole Sodium 40 mg DAILY IV 08/26/24 10:00 08/28/24 09:11 40 MG Nitroglycerin 0.4 mg Q5MINP PRN SL 08/25/24 21:30 Hydromorphone HCl 0.5 mg Q4HPRN PRN IV 08/26/24 01:00 08/27/24 10:37 0.5 MG Lactated Ringer's 1,000 ml @ 100 mls/hr Q10H IV 08/26/24 11:30 08/28/24 13:30 100 MLS/HR Nortriptyline HCl 25 mg QPM PO 08/26/24 18:00 Paroxetine HCl 20 mg DAILY PO 08/27/24 10:00 08/28/24 09:11 20 MG Pregabalin 75 mg TID PO 08/26/24 14:00 08/28/24 14:02 75 MG Patient Own Medication 150 mcg QAM PO 08/27/24 07:00 UNV Levothyroxine Sodium 100 mcg QAM PO 08/27/24 07:00 08/28/24 05:37 100 MCG Levothyroxine Sodium 50 mcg QAM PO 08/27/24 07:00 08/28/24 05:37 50 MCG Ceftriaxone Sodium 50 ml @ 100 mls/hr DAILY@09 IV 08/27/24 09:00 08/28/24 09:05 100 MLS/HR Hydralazine HCl 10 mg Q6HPRN PRN IV 08/26/24 18:15 08/27/24 06:44 10 MG Melatonin 5 mg HS PO 08/27/24 22:00 Cancel Melatonin 5 mg HS PO 08/26/24 23:00 08/27/24 21:21 5 MG Trazodone HCl 50 mg HS PO 08/27/24 01:00 08/27/24 21:22 50 MG objective Well-developed well-nourished lady no acute distress Pupils equal and react to light, extraocular movements intact Lungs are clear, CVS S1-S2 regular rate rhythm Abdomen is soft nontender nondistended Extremities without clubbing cyanosis or edema Neuro alert oriented x3 with no focal deficit laboratory and microbiology Laboratory Tests 08/27/24 10:30 08/27/24 08:35 Test 08/27/24 08:35 Range/Units Serum Glucose 107 H 74-106 mg/dL Problems(with codes): (1) Gastroduodenitis (2) Intractable abdominal pain Prognosis Plan Discharge planning is in progress Continue Protonix 40 mg p.o. daily Carafate 1 g p.o. twice a day DC aspirin NSAIDs smoking alcohol Outpatient follow up me in 4-6 weeks to discuss elective colonoscopy Once again thank you for allowing me to participate Plan discussed with: Patient, Other (Nurse) BIBIANA DENISE MD Aug 28, 2024 16:17
== END 2024-08-28 16:38 | disposition home or self-care (01) | DRG 391 ==
LOC: EDUNIT# 17:40 → ER 17:40 → EDBD 17:40 → TELE 21:28 → TELE-EAST 08-27 03:00
PROVIDERS: ADMIT Nurse Practitioner; ATTEND Nurse Practitioner
PROC: 0DB68ZX Excision of Stomach, Via Natural or Artificial Opening Endoscopic, Diagnostic (ICD-10-PCS; 2024-08-27)
PROC: 0DB48ZX Excision of Esophagogastric Junction, Via Natural or Artificial Opening Endoscopic, Diagnostic (ICD-10-PCS; 2024-08-27)
PROC: 0DB98ZX Excision of Duodenum, Via Natural or Artificial Opening Endoscopic, Diagnostic (ICD-10-PCS; principal; 2024-08-27 12:50)
DX: K29.70 Gastritis, unspecified, without bleeding (principal); N17.0 Acute kidney failure with tubular necrosis; E87.1 Hypo-osmolality and hyponatremia; K29.80 Duodenitis without bleeding; E78.5 Hyperlipidemia, unspecified; I10 Essential (primary) hypertension; J44.9 Chronic obstructive pulmonary disease, unspecified; I25.10 Atherosclerotic heart disease of native coronary artery without angina pectoris; E03.9 Hypothyroidism, unspecified; K43.9 Ventral hernia without obstruction or gangrene; K21.9 Gastro-esophageal reflux disease without esophagitis; E87.6 Hypokalemia; M19.09 Primary osteoarthritis, other specified site; K44.9 Diaphragmatic hernia without obstruction or gangrene; F12.90 Cannabis use, unspecified, uncomplicated; Z88.5 Allergy status to narcotic agent; Z90.49 Acquired absence of other specified parts of digestive tract; Z90.710 Acquired absence of both cervix and uterus; Z82.49 Family history of ischemic heart disease and other diseases of the circulatory system
CPT/HCPCS: 36415; 43239; 71045; 74176; 80048; 80053; 80307; 80320; 81001; 82270; 83605; 83690; 84436; 84443; 84481; 84484; 85025; 85048; 85610; 85730; 86850; 86900; 86901; 87045; 87086; 87088; 87186; 87427; 87493; 93005; G0378; J1885; J2250; J2405; J2470; J2704; J3490

== ENCOUNTER 2024-10-01 13:59 | Inpatient (IN) | payer OTHER ==
[~2024-10-01] VITALS: Ht 162.6 cm; Wt 77.0 kg
[~2024-10-01 13:59] MED LIST changes: -HYDR-4833 PO; -HYDR25TA4 PO; +PERCOT PO; +SUCR1TAB31 OR; +TRAZ-227 PO; +ZOFR4T PO
--- NOTE | 2024-10-01 14:46 | ED.PDOC ---
History of Present Illness HPI Comments 69-year-old female with PMHx NV, HTN brought in by EMS presents with a chief complaint nausea, vomiting, diarrhea, and abdominal pain x onset yesterday. Patient states that her pain is localized to her diffuse abdomen, nonradiating, describes as cramping, and rates her pain a 8/10. Patient mentions that the diarrhea has been getting worse since yesterday and that now she is nauseated with vomiting. Patient not actively vomiting on arrival to ER. Patient denies any blood in the stool or emesis. No other symptoms or modifying factors present at this time. Chief Complaint: Nausea/Vomiting Time Seen by MD: 14:13 Primary Care Provider: JIMBO Reviewed Notes: Medications, Allergies Allergies: Coded Allergies: Codeine (Verified Allergy, Mild, 12/10/10) Morphine (Verified Allergy, Mild, 12/10/10) Home Meds Active Scripts Ondansetron Odt 4MG Tab (ZOFRAN PO) 4 Mg Tb, 4 MG PO Q6HP PRN for 10 Days, #40 TAB ODT TAB-DISSOLVE IN MOUTH, THEN SWALLOW Prov:TRISTAN KELLEY BUSINESS ANALYTICS ANALYST 08/28/24 Sucralfate (CARAFATE) 1 Gm Tab, 1 GM OR QID for 30 Days, #120 TAB Prov:TRISTAN KELLEY BUSINESS ANALYTICS ANALYST 08/28/24 Pantoprazole Sodium Sesquihydr (Protonix) 40 Mg Tab, 40 MG PO BID for 30 Days, #60 TAB Prov:TRISTAN KELLEY BUSINESS ANALYTICS ANALYST 08/28/24 Reported Medications Oxycodone W/ Acetaminophen (Percocet 5/325MG) 1 Tab Tb, 1 TAB PO TID, #90 TAB 08/27/24 Trazodone Hcl (Trazodone Hcl) 50 Mg Tab, 50 MG PO, MG 08/27/24 Pregabalin (Lyrica) 75 Mg Cap, 75 MG PO TID, CAP 06/06/18 Levothyroxine Sodium (Levothyroxine Sodium) 150 Mcg Tab, 150 MCG PO QAM for 30 Days 06/06/18 Nortriptyline Hcl (PAMELOR CAPSULE) 25 Mg Cp, 1 CAP PO QPM, #30 CAP 3 Refills 06/06/18 Docusate Sodium (Docusate Sodium) 100 Mg Tab, 100 MG PO DAILYP PRN for FOR CONSTIPATION for 30 Days, MG 10/27/18 [place]-3 Fatty Acids ([place] 3 500 500 mg) 1 Cap Cap, 2 CAP PO DAILY, CAP 06/06/18 Paroxetine (PAXIL TABLET) 20 Mg Tb, 1 TAB PO DAILY, #30 TAB 5 Refills 30 mg daily 06/06/18 Information Source: Patient, Emergency Med Personnel Mode of Arrival: EMS Severity: Moderate Timing: Days Duration: Since onset Prehospital treatment: None Past Medical History PAST MEDICAL HISTORY: Cancer, COPD, High Lipids, HTN, Thyroid Surgical History: Cholecystectomy, Hysterectomy LICENSED PHYSICAL THERAPIST ASSISTANT History: No Pertinent LICENSED PHYSICAL THERAPIST ASSISTANT History Family History Family History: Pt Confused Social History Smoker: Non-Smoker Alcohol: Denies ETOH Use Drugs: Marijuana Lives In: Home Constitutional: denies: chills, diaphoresis, fatigue, fever, malaise, sweats, weakness, others EENTM: denies: blurred vision, double vision, ear bleeding, ear discharge, ear drainage, ear pain, ear ringing, eye pain, eye redness, hearing loss, mouth pain, mouth swelling, nasal discharge, nose bleeding, nose congestion, nose pain, photophobia, tearing, throat pain, throat swelling, voice changes, others Respiratory: denies: cough, hemoptysis, orthopnea, SOB at rest, shortness of breath, SOB with excertion, stridor, wheezing, others Gastrointestinal: reports: abdominal pain, diarrhea, nausea, vomiting; denies: abdomen distended, blood streaked bowels, constipated, dysphagia, difficulty swallowing, hematemesis, melena, poor appetite, poor fluid intake, rectal bleeding, rectal pain, others Genitourinary: denies: abnormal vagina bleeding, burning, dyspareunia, dysuria, flank pain, frequency, hematuria, incontinence, pain, , vagina discharge, urgency, others Neurological: denies: dizziness, fainting, headache, left sided numbness, left sided weakness, numbness, paresthesia, pre-existing deficit, right sided n umbness, right sided weakness, seizure, speech problems, tingling, tremors, weakness, others Musculoskeletal: denies: back pain, gout, joint pain, joint swelling, muscle pain, muscle stiffness, neck pain, others Integumetry: denies: bruises, change in color, change in hair/nails, dryness, laceration, lesions, lumps, rash, wounds, others Allergic/Immunocompromised: denies: Difficulty Healing, Frequent Infections, Hives, Itching, others Hematologic/Lymphatic: denies: anemia, blood clots, easy bleeding, easy bruising, swollen glands, others Endocrine: denies: excessive hunger, excessive sweating, excessive thirst, excessive urination, flushing, intolerance to cold, intolerance to heat, unexplained weight gain, unexplained weight loss, others Psychiatric: denies: anxiety, bipolar disorder, depression, hopeless, panic disorder, schizophrenia, sleepless, suicidal, others All Other Systems: Reviewed and Negative Physical Exam General Appearance: Moderate Distress, Normal HEENT: Normal ENT Inspection, Pharynx Normal, TMs Normal Neck: Full Range of Motion, Non-Tender, Normal, Normal Inspection Respiratory: Chest Non-Tender, Lungs Clear, No Accessory Muscle Use, No Respiratory Distress, Normal Breath Sounds Cardiovascular: No Edema, No JVD, No Murmur, No Gallop, Normal Peripheral Pulses, Regular Rate/Rhythm Breast Exam: Deferred Gastrointestinal: No Organomegaly, Non Tender, No Pulsatile Mass, Normal Bowel Sounds, Soft Genitalia: Deferred Pelvic: Deferred Rectal: Deferred Extremities: No calf tenderness, Normal capillary refill, Normal inspection, Normal range of motion, Non-tender, No pedal edema Musculoskeletal : Apperance: Normal Neurologic: Alert, slip cover maker II-XII nml as Tested, No Motor Deficits, Normal Affect, Normal Mood, No Sensory Deficits Cerebellar Function: NOT DONE Reflexes: NOT DONE Skin: Dry, Normal Color, Warm Peripheral Pulses: 3+ Radial (R), 3+ Radial (L) Lymphatic: No Adenopathy Was a procedure done? Was a procedure done?: No Differential Dx Considerations may include: Gastroenteritis Electrolyte imbalance X-Ray, Labs, Meds, VS Vital Signs Date Time Temp Pulse Resp B/P (MAP) Pulse Ox O2 Delivery O2 Flow Rate FiO2 10/01/24 15:35 97.6 65 20 134/99 (111) 98 97.6 10/01/24 14:06 97.3 64 28 157/93 (114) 99 Lab Test 10/01/24 14:57 Range/Units White Blood Count 9.6 4.4-10.8 10^3/uL Red Blood Count 4.60 4.0-5.20 10^6/uL Hemoglobin 15.0 12.2-16.2 g/dL Hematocrit 45.2 36.0-46.0 % Mean Corpuscular Volume 98.3 80.0-100.0 fL Mean Corpuscular Hemoglobin 32.6 H 28.0-32.0 pg Mean Corpuscular Hemoglobin Concent 33.2 32.0-36.0 g/dL Red Cell Distribution Width 14.5 H 11.8-14.3 % Platelet Count 163 140-450 10^3/uL Mean Platelet Volume 10.3 6.9-10.8 fL Neutrophils (%) (Auto) 59.7 37.0-80.0 % Lymphocytes (%) (Auto) 33.0 10.0-50.0 % Monocytes (%) (Auto) 5.7 0.0-12.0 % Eosinophils (%) (Auto) 1.0 0.0-7.0 % Basophils (%) (Auto) 0.6 0.0-2.0 % Neutrophils # (Auto) 5.8 1.6-8.6 10 ^3/uL Lymphocytes # (Auto) 3.2 0.4-5.4 10 ^3/uL Monocytes # (Auto) 0.6 0-1.3 10 ^3/uL Eosinophils # (Auto) 0.1 0-0.8 10 ^3/uL Basophils # (Auto) 0.1 0-0.2 10 ^3/uL Nucleated Red Blood Cells 0.1 % Sodium Level Pending Potassium Level Pending Chloride Level Pending Carbon Dioxide Level Pending Anion Gap Pending Blood Urea Nitrogen Pending Creatinine Pending Glomerular Filtration Rate Calc Pending BUN/Creatinine Ratio Pending Serum Glucose Pending Calcium Level Pending Patient alert. Complaining of nausea vomiting. Vitals stable. Answering all questions. Establish intravenous access. Was given fluids. WBC within normal limits. Hemoglobin within normal limits. Was given Zofran. Continues to have nausea. Possibly autonomic disorder. Explained to the patient. Continue monitoring. Time of 1ST Reevaluation: 14:43 Reevaluation 1ST: Unchanged Patient Education/Counseling: Diagnosis, Treatment, Prognosis Family Education/Counseling: Diagnosis, Treatment, Prognosis Departure 1 Departure Time of Disposition: 15:40 Impression: Primary Impression: Intractable abdominal pain Additional Impressions: Gastroduodenitis Autonomic disorder Disposition: 09 ADMITTED INPATIENT Admit to: Med Surg Condition: Guarded Critical Care Note Critical Care Time?: No Stability Stability form required: No I personally scribed for ARIELA FLETCHER MD ([email or web address]) on 10/01/24 at 14:46. Electronically submitted by Bernard Rich ([email or web address]). ARIELA FLETCHER MD Oct 01, 2024 14:46
[2024-10-01 15:29] LABS: Basophils # (auto) 0.1 10 ^3/uL (0-0.2); Basophils % (auto) 0.6 % (0.0-2.0); Eosinophils # (auto) 0.1 10 ^3/uL (0-0.8); Hematocrit 45.2 % (36.0-46.0); Lymphocytes # (auto) 3.2 10 ^3/uL (0.4-5.4); Mean Corpuscular Hemoglobin 32.6 pg (28.0-32.0); Mean Corpuscular Hgb Conc. 33.2 g/dL (32.0-36.0); Mean Corpuscular Volume 98.3 fL (80.0-100.0); Monocytes # (auto) 0.6 10 ^3/uL (0-1.3); Monocytes % (auto) 5.7 % (0.0-12.0); Neutrophils # (auto) 5.8 10 ^3/uL (1.6-8.6); Neutrophils % (auto) 59.7 % (37.0-80.0); Nucleated Red Blood Cells % 0.1 %; Platelet Count (auto) 163 10^3/uL (140-450); Red Cell Distribution Width 14.5 % (11.8-14.3); White Blood Cell 9.6 10^3/uL (4.4-10.8)
[2024-10-01 15:35] VITALS: PULSE 65; RESP 20; O2SAT 98
[2024-10-01] MEDS: SODIUM CHLORIDE 0.9% 1,000 ML IV ONE ×2 (15:41→15:45)
[2024-10-01] MEDS: ONDANSETRON HCL 4 MG/2 ML VIAL IV ONE (15:41)
[2024-10-01] MEDS: MORPHINE SULFATE INJ 2 MG/ml SYRG IV ONE (15:42)
[2024-10-01 15:48] LABS: Potassium 4.5 mmol/L (3.5-5.1); Sodium 138 mmol/L (136-145)
[2024-10-01 15:49] LABS: Anion Gap 11 (5-15); Carbon Dioxide 20 mmol/L (20-31)
[2024-10-01 15:50] LABS: Calcium 10.3 mg/dL (8.7-10.4)
[2024-10-01] MEDS: LORazepam 2MG/ML-1ML VIAL IV ONE (15:52)
[2024-10-01 15:54] LABS: Glucose 99 mg/dL (74-106)
[2024-10-01 15:55] LABS: BUN/Creatinine Ratio 14.5 (10.0-20.0); Blood Urea Nitrogen 17 mg/dL (9-23); Chloride 107 mmol/L (98-107)
[2024-10-01 16:19] LABS: Urine Bacteria None Seen /hpf (None Seen)
--- NOTE | 2024-10-01 16:29 | DVHHP2 ---
Admitting Diagnosis: Patient is a 69 year old female with a hx of GA, HTN who is presenting to the ED with N/V/D and abdominal pain x onset yesterday. Patient states that the pain is nonradiating, experiences cramping, and the pain is a 8/10. Patient also notes that diarrhea is getting worse and now is experiencing nausea with associated vomiting. Patient denies hematochezia. While in the emergency department the patient was evaluated by the provider, Labs, vital signs, and imagining monitored. Patient will be admitted for further evaluation and treatment. I discussed admission with the patient/family and is in agreement to treatment plan. History of Present Illness Home Meds Active Scripts Ondansetron Odt 4MG Tab (ZOFRAN PO) 4 Mg Tb, 4 MG PO Q6HP PRN for 10 Days, #40 TAB ODT TAB-DISSOLVE IN MOUTH, THEN SWALLOW Prov:TRISTAN KELLEY PRODUCTION POSTING CLERK 08/28/24 Sucralfate (CARAFATE) 1 Gm Tab, 1 GM OR QID for 30 Days, #120 TAB Prov:TRISTAN KELLEY PRODUCTION POSTING CLERK 08/28/24 Pantoprazole Sodium Sesquihydr (Protonix) 40 Mg Tab, 40 MG PO BID for 30 Days, #60 TAB Prov:TRISTAN KELLEY PRODUCTION POSTING CLERK 08/28/24 Reported Medications Oxycodone W/ Acetaminophen (Percocet 5/325MG) 1 Tab Tb, 1 TAB PO TID, #90 TAB 08/27/24 Trazodone Hcl (Trazodone Hcl) 50 Mg Tab, 50 MG PO, MG 08/27/24 Pregabalin (Lyrica) 75 Mg Cap, 75 MG PO TID, CAP 06/06/18 Levothyroxine Sodium (Levothyroxine Sodium) 150 Mcg Tab, 150 MCG PO QAM for 30 Days 06/06/18 Nortriptyline Hcl (PAMELOR CAPSULE) 25 Mg Cp, 1 CAP PO QPM, #30 CAP 3 Refills 06/06/18 Docusate Sodium (Docusate Sodium) 100 Mg Tab, 100 MG PO DAILYP PRN for FOR CONSTIPATION for 30 Days, MG 06/06/18 [place]-3 Fatty Acids ([place] 3 500 500 mg) 1 Cap Cap, 2 CAP PO DAILY, CAP 06/06/18 Paroxetine (PAXIL TABLET) 20 Mg Tb, 1 TAB PO DAILY, #30 TAB 5 Refills 30 mg daily 06/06/18 Past Medical History Patient Family History: Hypercholesterolemia G8 MOTHER G8 FATHER Hypertension G8 MOTHER G8 FATHER Review of Systems Ears, Nose, & Throat: No symptom reported Eyes: No symptom reported Cardiovascular: No symptom reported Gastrointestinal: Nausea, Vomiting, Diarrhea Musculoskeletal: No symptom reported Psychiatric: No symptom reported H&P Exam Vital Signs Vital Signs Date Time Temp Pulse Resp B/P (MAP) Pulse Ox O2 Delivery O2 Flow Rate FiO2 10/01/24 16:01 80 18 150/80 10/01/24 15:35 97.6 98 97.6 10/01/24 15:35 Room Air* 0 21 Labs/Xrays Labs Test 10/01/24 16:15 10/01/24 14:57 Range/Units White Blood Count 9.6 4.4-10.8 10^3/uL Red Blood Count 4.60 4.0-5.20 10^6/uL Hemoglobin 15.0 12.2-16.2 g/dL Hematocrit 45.2 36.0-46.0 % Mean Corpuscular Volume 98.3 80.0-100.0 fL Mean Corpuscular Hemoglobin 32.6 H 28.0-32.0 pg Mean Corpuscular Hemoglobin Concent 33.2 32.0-36.0 g/dL Red Cell Distribution Width 14.5 H 11.8-14.3 % Platelet Count 163 140-450 10^3/uL Mean Platelet Volume 10.3 6.9-10.8 fL Neutrophils (%) (Auto) 59.7 37.0-80.0 % Lymphocytes (%) (Auto) 33.0 10.0-50.0 % Monocytes (%) (Auto) 5.7 0.0-12.0 % Eosinophils (%) (Auto) 1.0 0.0-7.0 % Basophils (%) (Auto) 0.6 0.0-2.0 % Neutrophils # (Auto) 5.8 1.6-8.6 10 ^3/uL Lymphocytes # (Auto) 3.2 0.4-5.4 10 ^3/uL Monocytes # (Auto) 0.6 0-1.3 10 ^3/uL Eosinophils # (Auto) 0.1 0-0.8 10 ^3/uL Basophils # (Auto) 0.1 0-0.2 10 ^3/uL Nucleated Red Blood Cells 0.1 % Sodium Level 138 136-145 mmol/L Potassium Level 4.5 3.5-5.1 mmol/L Chloride Level 107 98-107 mmol/L Carbon Dioxide Level 20 20-31 mmol/L Anion Gap 11 5-15 Blood Urea Nitrogen 17 9-23 mg/dL Creatinine 1.17 H 0.550-1.02 mg/dL Glomerular Filtration Rate Calc 50 >90 mL/min BUN/Creatinine Ratio 14.5 10.0-20.0 Serum Glucose 99 74-106 mg/dL Calcium Level 10.3 8.7-10.4 mg/dL Assessment/Plan Plan discussed with: Patient, Other TRISTAN KELLEY NP Oct 01, 2024 16:29
[2024-10-01] MEDS ORDERED: NITROGLYCERIN 0.4 MG SL TAB SL PRN (16:30)
[2024-10-01] MEDS ORDERED: ONDANSETRON HCL 4 MG/2 ML VIAL IV PRN (16:30)
[2024-10-01] MEDS: GASTROGRAFIN 30 ML SOL ONE (16:45)
[2024-10-01] MEDS: SODIUM CHLORIDE 0.9% 1,000 ML IV SCH (16:47)
[2024-10-01 16:48] LABS: Urine Blood Negative /uL (Negative); Urine Clarity Clear (Clear); Urine Color Light-Yellow (Yellow); Urine Hyaline Cast FEW /lpf (0 - 2); Urine Protein, UAD Negative (Negative); Urine Specific Gravity 1.016 (1.001-1.035); Urine Squamous Epithelial Cell FEW /hpf (<5); Urine Urobilinogen Normal (Negative); Urine WBC 1 /HPF (0-5); Urine pH 6.5 (5.0-9.0)
[2024-10-01] MEDS: HYDROcodone-ACET 5/325MG TAB PO PRN (18:48)
--- NOTE | 2024-10-01 20:07 | DVH ---
Procedure: CT CT ABD PELVIS W CON-ORAL IV 10/01/2024 07:40 PM Indication: abd pain Comparison Study: CT scan dated 08/25/2024 Technique: Axial images were obtained and reformatted in coronal and sagittal planes. Oral and intrav enous contrast was administered. All CT scans at this medical facility are performed using dose modulation techniques as appropriate t o a performed exam including the following: Automated exposure control was utilized; adjustment of th e MA and/or KV according to patient size; and use of iterative reconstruction technique. CT Dose: CTDI volume is 18.2 mGy. Dose-length product is 951 mGy*cm FINDINGS: Lower neck: Unremarkable. Cardiomediastinal: The heart is normal in size. Aorta is normal in caliber. No mediastinal lymphadeno marisol. Lungs: No focal pulmonary opacity. No pleural effusion. No pneumothorax. Hepatobiliary: Gallbladder is surgically absent. Slight irregularity liver contour suggestive of cir rhosis. Spleen: Unremarkable. Pancreas: Unremarkable. Adrenal Glands: Unremarkable. tract: The kidneys are normal in size bilaterally without hydronephrosis or nephrolithiasis. The urinary bladder is unremarkable. GI tract: The stomach is grossly normal in appearance. No evidence of small bowel obstruction. The la rge bowel is unremarkable. The appendix is seen. Surgical clips are seen in the right lower quadran t suggesting prior appendectomy. Oral contrast is seen in the small bowel, large bowel and rectum. Lymphatics: No mesenteric, retroperitoneal or periportal lymphadenopathy. Vasculature: The abdominal aorta is normal in in caliber. Pelvic Organs: Unremarkable. Bones/soft tissues: No acute abnormality. 6 mm degenerative grade 1 anterolisthesis of L4 on L5 witho ut pars defects, broad-based posterior disc bulge, bilateral posterior facet and ligamentum flavum hy pertrophy with severe central canal stenosis, effacement of thecal sac, severe bilateral neural sonam malini stenosis with impingement of the bilateral exiting nerves and the bilateral traversing nerve root s Other: None. IMPRESSION: 1. No acute abnormality in the chest, abdomen or pelvis. No evidence of bowel obstruction. 2. Slight nodularity liver contour suggestive of cirrhosis. 3. Degenerative disc disease and posterior facet arthropathy at L4-L5 with severe central canal and n eural foramina stenosis.
[2024-10-01] MEDS: IOHEXOL 300 MG/ML 100ML BOTTLE IJ ONE (21:45)
[2024-10-01] MEDS: metroNIDAZOLE 500 MG TAB PO SCH (21:50)
[2024-10-01 22:38] VITALS: BP 155/57; PULSE 61; RESP 16; TEMP 97.6; O2SAT 93
[2024-10-01] MEDS: TEMAZEPAM 15 MG CAP PO PRN (22:55)
[2024-10-01 23:28] VITALS: BP 155/57; PULSE 61; RESP 16; TEMP 97.6; O2SAT 93
[2024-10-02] VITALS (8 sets, daily range): BP systolic 122–169; BP diastolic 40–73; PULSE 57–96; RESP 16–22; TEMP 97.6–98.3; O2SAT 94–96
[2024-10-02 07:12] LABS: Basophils # (auto) 0 10 ^3/uL (0-0.2); Basophils % (auto) 0.7 % (0.0-2.0); Eosinophils # (auto) 0.3 10 ^3/uL (0-0.8); Eosinophils % (auto) 5.5 % (0.0-7.0); Hematocrit 38.9 % (36.0-46.0); Hemoglobin 12.8 g/dL (12.2-16.2); Lymphocytes # (auto) 2.2 10 ^3/uL (0.4-5.4); Lymphocytes % (auto) 36.6 % (10.0-50.0); Mean Corpuscular Hemoglobin 32.4 pg (28.0-32.0); Mean Corpuscular Volume 98.3 fL (80.0-100.0); Monocytes # (auto) 0.7 10 ^3/uL (0-1.3); Monocytes % (auto) 11.8 % (0.0-12.0); Neutrophils # (auto) 2.8 10 ^3/uL (1.6-8.6); Neutrophils % (auto) 45.4 % (37.0-80.0); Nucleated Red Blood Cells % 0.1 %; Platelet Count (auto) 109 10^3/uL (140-450); Red Blood Cells 3.95 10^6/uL (4.0-5.20); Red Cell Distribution Width 14.8 % (11.8-14.3); White Blood Cell 6.1 10^3/uL (4.4-10.8)
[2024-10-02] MEDS: PANTOPRAZOLE 40 MG/10 ML VIAL INJ IV SCH ×2 (10:03→21:59)
[2024-10-02] MEDS: ENOXAPARIN SOD 40 MG/0.4 ML SYRINGE SC SCH (10:07)
--- NOTE | 2024-10-02 12:53 | DVHPN2 ---
Progress Note - Dictate Date Seen: Oct 02, 2024 Medical Necessity Reason Pt with a Central, PICC or Fol: No vital signs Vital Sign Date Time Temp Pulse Resp B/P (MAP) Pulse Ox O2 Delivery O2 Flow Rate FiO2 10/02/24 08:30 97.7 60 17 169/68 (101) 95 97.7 10/01/24 15:35 Room Air* 0 21 Total Intake and Output 10/01/24 10/01/24 10/02/24 15:00 23:00 07:00 Intake Total 250 ml Output Total 0 ml Balance 250 ml medications Current Medications Medications Dose Ordered Sig/Broderick Route Start Time Stop Time Status Last Admin Dose Admin Sodium Chloride 1,000 ml @ 120 mls/hr Q8H20M IV 10/01/24 16:30 10/02/24 01:12 120 MLS/HR Acetaminophen/ Hydrocodone Bitart 1 tab Q4HP PRN PO 10/01/24 16:30 10/02/24 10:02 1 TAB Temazepam 15 mg QHSP PRN PO 10/01/24 16:30 10/01/24 22:55 15 MG Ondansetron HCl 4 mg Q4HP PRN IV 10/01/24 16:30 Acetaminophen 650 mg Q6HP PRN PO 10/01/24 16:30 Metronidazole 500 mg TID PO 10/01/24 22:00 10/02/24 06:49 500 MG Nitroglycerin 0.4 mg Q5MINP PRN SL 10/01/24 16:30 Pantoprazole Sodium 40 mg BID IV 10/02/24 22:00 UNV Sucralfate 1 gm QID@0600,1130,1700,2200 PO 10/02/24 13:00 UNV Metoclopramide HCl 10 mg Q6HR IV 10/02/24 13:00 10/05/24 12:59 UNV objective General Appearance: alert, no distress HEENT: EOMI, PERRLA, normal external inspect of ears, no icterus, no nasal drainage Neck: no carotid bruit, no jugular venous distention (JVD), no lymphadenopathy Chest: normal thorax Respiratory: clear to auscultation, normal air movement Cardiovascular: regular rate and rhythm, no diastolic murmur, no jugular venous distention (JVD), no rub, no systolic murmur Abdominal: soft, no hepatomegaly, no mass, no splenomegaly Genitourinary: grossly normal external Musculoskeletal: no joint tenderness, no swelling Extremities: normal pulses, no calf tenderness, no clubbing, no cyanosis, no edema Skin: no bruising, no jaundice, no rash Neurological: alert, No focal deficit laboratory and microbiology Laboratory Tests 10/02/24 06:12 10/01/24 14:57 Test 10/01/24 14:57 Range/Units Serum Glucose 99 74-106 mg/dL Problem List 1. Intractable Nausea and Vomiting Medication, monitoring 2. Cannabis Hyperemesis IV Fluids, monitoring, education 3. GERD Carafate, monitor 4. Benign Essential HTN Medication 5. Liver cirrhosis Medication, monitoring Assessment/Plan Subjective: Patient is awake and alert. Objective: Patient is complaining of abdominal pain. Pain medications were adjusted. Patient has a history of long-term cannabis use and has had several episodes of cannabinoid hyperemesis syndrome. Patient was on Protonix. Plan: Consult GI. Start Reglan. Start IV fluids. PRN pain medications. Plan discussed with: Patient, Other TRISTAN KELLEY NP Oct 02, 2024 12:53
[2024-10-02] MEDS: METOCLOPRAMIDE HCL 5MG/ml INJ 2ml VIAL IV SCH (14:16)
[2024-10-02] MEDS: SUCRALFATE 1 GM/10 ML ORAL SUSP PO SCH (14:17)
[2024-10-02] MEDS: OXYCODONE W/ ACETAMINOPHEN 5/325MG TABLET PO PRN (14:59)
[2024-10-02] MEDS: ALPRAZolam 0.5 MG TAB PO PRN (17:25)
[2024-10-02] MEDS: ACETAMINOPHEN 325 MG TAB PO PRN (20:05)
--- NOTE | 2024-10-02 20:29 | DVHHP2 ---
Admitting Diagnosis: N/V/D and abdominal pain History of Present Illness H&P is for 10/01/2024 Patient is a 69 year old female with a hx of [place], HTN who is presenting to the ED with N/V/D and abdominal pain x onset yesterday. Patient states that the pain is nonradiating, experiences cramping, and the pain is a 8/10. Patient also notes that diarrhea is getting worse and now is experiencing nausea with associated vomiting. Patient denies hematochezia. While in the emergency department the patient was evaluated by the provider, Labs, vital signs, and imagining monitored. Patient will be admitted for further evaluation and treatment. I discussed admission with the patient/family and is in agreement to treatment plan. Patient Family History: Hypercholesterolemia G8 MOTHER G8 FATHER Hypertension G8 MOTHER G8 FATHER Allergies: Coded Allergies: Codeine (Verified Allergy, Mild, 12/10/10) Morphine (Verified Allergy, Mild, 12/10/10) Home Meds Active Scripts Ondansetron Odt 4MG Tab (ZOFRAN PO) 4 Mg Tb, 4 MG PO Q6HP PRN for 10 Days, #40 TAB ODT TAB-DISSOLVE IN MOUTH, THEN SWALLOW Prov:TRISTAN KELLEY MOTOR VEHICLE TECHNICIAN 08/28/24 Sucralfate (CARAFATE) 1 Gm Tab, 1 GM OR QID for 30 Days, #120 TAB Prov:TRISTAN KELLEY MOTOR VEHICLE TECHNICIAN 08/28/24 Pantoprazole Sodium Sesquihydr (Protonix) 40 Mg Tab, 40 MG PO BID for 30 Days, #60 TAB Prov:TRISTAN KELLEY MOTOR VEHICLE TECHNICIAN 08/28/24 Reported Medications Oxycodone W/ Acetaminophen (Percocet 5/325MG) 1 Tab Tb, 1 TAB PO TID, #90 TAB 08/27/24 Trazodone Hcl (Trazodone Hcl) 50 Mg Tab, 50 MG PO, MG 08/27/24 Pregabalin (Lyrica) 75 Mg Cap, 75 MG PO TID, CAP 06/06/18 Levothyroxine Sodium (Levothyroxine Sodium) 150 Mcg Tab, 150 MCG PO QAM for 30 Days 06/06/18 Nortriptyline Hcl (PAMELOR CAPSULE) 25 Mg Cp, 1 CAP PO QPM, #30 CAP 3 Refills 10/27/18 Docusate Sodium (Docusate Sodium) 100 Mg Tab, 100 MG PO DAILYP PRN for FOR CONSTIPATION for 30 Days, MG 06/06/18 [place]-3 Fatty Acids ([place] 3 500 500 mg) 1 Cap Cap, 2 CAP PO DAILY, CAP 06/06/18 Paroxetine (PAXIL TABLET) 20 Mg Tb, 1 TAB PO DAILY, #30 TAB 5 Refills 30 mg daily 06/06/18 Current Medications Current Medications Medications (Trade) Dose Ordered Sig/Broderick Route PRN Reason Start Time Stop Time Status Last Admin Enoxaparin Sodium (Lovenox) 40 mg DAILY SC 10/02/24 10:00 10/02/24 12:49 DC 10/02/24 10:07 Metronidazole (Flagyl Tablet) 500 mg TID PO 10/01/24 22:00 10/02/24 14:17 Pantoprazole Sodium (Protonix) 40 mg DAILY IV 10/02/24 10:00 10/02/24 12:49 DC 10/02/24 10:03 Pantoprazole Sodium (Protonix) 40 mg BID IV 10/02/24 22:00 Sucralfate (Carafate Susp) 1 gm QID@0600,1130,1700,2200 PO 10/02/24 13:00 10/02/24 17:26 Metoclopramide HCl (Reglan Injection) 10 mg Q6HR IV 10/02/24 13:00 10/05/24 12:59 10/02/24 17:26 Oxycodone/ Acetaminophen (Percocet 5/ 325MG Tablet) 1 tab TIDPRN PRN PO SEVERE PAIN (7-10 PAIN SCALE) 10/02/24 13:45 10/02/24 14:59 Alprazolam (Xanax Tablet) 0.5 mg Q6HPRN PRN PO ANXIETY 10/02/24 15:45 10/02/24 17:25 Review of Systems Constitutional: denies chills, denies fever, denies malaise Eyes: denies eye pain, denies vision change ENT: denies ear pain, denies headache, denies nasal congestion, denies painful swallowing, denies voice change Cardiovascular: denies chest pain, denies edema, denies orthopnea, denies palpitations, denies paroxysmal nocturnal dyspnea Respiratory: denies cough, denies shortness of breath Gastrointestinal: N/V/D Genitourinary: denies dysuria, denies frequent urination, denies urethral discharge Musculoskeletal: denies back pain, denies joint pain, denies muscle pain Skin: denies bruising, denies itching, denies rash Neurological: denies focal weakness, denies headache, denies sensory changes Psychiatric: denies anxiety, denies depression Endocrine: denies polydipsia, denies polyuria Hematologic/Lymphatic: denies easy bleeding, denies easy bruising, denies enlarged lymph nodes Allergic/Immunologic: denies allergy, denies hives Vital Signs Vital Signs Date Time Temp Pulse Resp B/P (MAP) Pulse Ox O2 Delivery O2 Flow Rate FiO2 10/02/24 16:48 97.7 63 20 153/73 (99) 96 97.7 10/02/24 08:00 Room Air* 0 21 Physical Exam General Appearance: alert, no distress HEENT: EOMI, PERRLA, normal external inspect of ears, no icterus, no nasal drainage Neck: no carotid bruit, no jugular venous distention (JVD), no lymphadenopathy Chest: normal thorax Respiratory: clear to auscultation, normal air movement Cardiovascular: regular rate and rhythm, no diastolic murmur, no jugular venous distention (JVD), no rub, no systolic murmur Abdominal: soft, no hepatomegaly, no mass, no splenomegaly Genitourinary: grossly normal external Musculoskeletal: no joint tenderness, no swelling Extremities: normal pulses, no calf tenderness, no clubbing, no cyanosis, no edema Skin: no bruising, no jaundice, no rash Neurological: alert, No focal deficit Results Labs Test 10/02/24 06:12 10/01/24 16:15 10/01/24 14:57 Range/Units White Blood Count 6.1 # 4.4-10.8 10^3/uL Red Blood Count 3.95 L 4.0-5.20 10^6/uL Hemoglobin 12.8 12.2-16.2 g/dL Hematocrit 38.9 # 36.0-46.0 % Mean Corpuscular Volume 98.3 80.0-100.0 fL Mean Corpuscular Hemoglobin 32.4 H 28.0-32.0 pg Mean Corpuscular Hemoglobin Concent 33.0 32.0-36.0 g/dL Red Cell Distribution Width 14.8 H 11.8-14.3 % Platelet Count 109 L 140-450 10^3/uL Mean Platelet Volume 10.2 6.9-10.8 fL Neutrophils (%) (Auto) 45.4 37.0-80.0 % Lymphocytes (%) (Auto) 36.6 10.0-50.0 % Monocytes (%) (Auto) 11.8 0.0-12.0 % Eosinophils (%) (Auto) 5.5 0.0-7.0 % Basophils (%) (Auto) 0.7 0.0-2.0 % Neutrophils # (Auto) 2.8 1.6-8.6 10 ^3/uL Lymphocytes # (Auto) 2.2 0.4-5.4 10 ^3/uL Monocytes # (Auto) 0.7 0-1.3 10 ^3/uL Eosinophils # (Auto) 0.3 0-0.8 10 ^3/uL Basophils # (Auto) 0 0-0.2 10 ^3/uL Nucleated Red Blood Cells 0.1 % Lipase 37 12-53 U/L Urine Color Light-yellow Yellow Urine Clarity Clear Clear Urine pH 6.5 5.0-9.0 Urine Specific [place] 1.016 1.001-1.035 Urine Protein Negative Negative Urine Ketones 1+ H Negative Urine Blood Negative Negative /uL Urine Nitrite Negative Negative Urine Bilirubin Negative Negative Urine Urobilinogen Normal Negative mg/dL Urine Leukocyte Esterase Negative Negative /uL Urine RBC 5 0 - 4 /hpf Urine Microscopic WBC 1 0-5 /HPF Urine Squamous Epithelial Cells Few <5 /hpf Urine Bacteria None seen None Seen /hpf Urine Hyaline Casts Few 0 - 2 /lpf Urine Glucose Normal Normal mg/dL Sodium Level 138 136-145 mmol/L Potassium Level 4.5 3.5-5.1 mmol/L Chloride Level 107 98-107 mmol/L Carbon Dioxide Level 20 20-31 mmol/L Anion Gap 11 5-15 Blood Urea Nitrogen 17 9-23 mg/dL Creatinine 1.17 H 0.550-1.02 mg/dL Glomerular Filtration Rate Calc 50 >90 mL/min BUN/Creatinine Ratio 14.5 10.0-20.0 Serum Glucose 99 74-106 mg/dL Calcium Level 10.3 8.7-10.4 mg/dL Admitting Diagnosis: 1. Intractable Nausea and Vomiting Medication, monitoring 2. Cannabis Hyperemesis IV Fluids, monitoring, education 3. GERD Carafate, monitor 4. Benign Essential HTN Medication 5. Liver cirrhosis Medication, monitoring Plan discussed with: Patient, Other TRISTAN KELLEY NP Oct 02, 2024 20:29
[2024-10-03] VITALS (9 sets, daily range): BP systolic 140–185; BP diastolic 65–91; PULSE 55–86; RESP 15–18; TEMP 97.5–98.9; O2SAT 92–99
--- NOTE | 2024-10-03 09:17 | DVHPN2 ---
Progress Note - Dictate Date Seen: Oct 03, 2024 Medical Necessity Reason Pt with a Central, PICC or Fol: No vital signs Vital Sign Date Time Temp Pulse Resp B/P (MAP) Pulse Ox O2 Delivery O2 Flow Rate FiO2 10/03/24 05:00 97.7 57 16 156/68 (97) 94 97.7 10/02/24 20:00 Room Air* 0 21 Total Intake and Output 10/02/24 10/02/24 10/03/24 15:00 23:00 07:00 Intake Total 1000 ml 606 ml 1440 ml Balance 1000 ml 606 ml 1440 ml medications Current Medications Medications Dose Ordered Sig/Broderick Route Start Time Stop Time Status Last Admin Dose Admin Sodium Chloride 1,000 ml @ 120 mls/hr Q8H20M IV 10/01/24 16:30 10/03/24 00:15 120 MLS/HR Temazepam 15 mg QHSP PRN PO 10/01/24 16:30 10/02/24 21:59 15 MG Ondansetron HCl 4 mg Q4HP PRN IV 10/01/24 16:30 Acetaminophen 650 mg Q6HP PRN PO 10/01/24 16:30 10/03/24 05:00 650 MG Metronidazole 500 mg TID PO 10/01/24 22:00 10/03/24 05:10 500 MG Nitroglycerin 0.4 mg Q5MINP PRN SL 10/01/24 16:30 Pantoprazole Sodium 40 mg BID IV 10/02/24 22:00 10/02/24 21:59 40 MG Sucralfate 1 gm QID@0600,1130,1700,2200 PO 10/02/24 13:00 10/03/24 05:10 1 GM Metoclopramide HCl 10 mg Q6HR IV 10/02/24 13:00 10/05/24 12:59 10/03/24 05:10 10 MG Oxycodone/ Acetaminophen 1 tab TIDPRN PRN PO 10/02/24 13:45 10/03/24 00:09 1 TAB Alprazolam 0.5 mg Q6HPRN PRN PO 10/02/24 15:45 10/03/24 03:09 0.5 MG objective General Appearance: alert, no distress HEENT: EOMI, PERRLA, normal external inspect of ears, no icterus, no nasal drainage Neck: no carotid bruit, no jugular venous distention (JVD), no lymphadenopathy Chest: normal thorax Respiratory: clear to auscultation, normal air movement Cardiovascular: regular rate and rhythm, no diastolic murmur, no jugular venous distention (JVD), no rub, no systolic murmur Abdominal: soft, no hepatomegaly, no mass, no splenomegaly Genitourinary: grossly normal external Musculoskeletal: no joint tenderness, no swelling Extremities: normal pulses, no calf tenderness, no clubbing, no cyanosis, no edema Skin: no bruising, no jaundice, no rash Neurological: alert, No focal deficit laboratory and microbiology Laboratory Tests 10/02/24 06:12 10/01/24 14:57 Test 10/01/24 14:57 Range/Units Serum Glucose 99 74-106 mg/dL Problem List 1. Intractable Nausea and Vomiting Medication, monitoring 2. Cannabis Hyperemesis IV Fluids, monitoring, education 3. GERD Carafate, monitor 4. Benign Essential HTN Medication 5. Liver cirrhosis Medication, monitoring Assessment/Plan Subjective: Patient is awake and alert. Objective: Patient was admitted for intractable abdominal pain, most likely due to cannabis hyperemesis. Urine drug screen was ordered on admission, still not done. Patient is on Protonix and Carafate. Patient had a EGD done last year, mild gastritis was found. Plan: Continue IV fluids. Patient is on a cardiac diet and only tolerating 25% of meals. Add boost supplements. Monitor daily labs. Possible plan for discharge tomorrow. Patient reports no emesis today. Dietary Evaluation Review Comments: 1) Promote good PO intake 2) Continue current plan of care 3) F/u with fleet sales associate Expected Outcomes/Goals: 1) appetite and labs to improve 2) f/u in 3 days Plan discussed with: Patient, Other TRISTAN KELLEY NP Oct 03, 2024 09:17
[2024-10-03 13:48] LABS: Chloride 104 mmol/L (98-107); Potassium 3.6 mmol/L (3.5-5.1); Sodium 140 mmol/L (136-145)
[2024-10-03 13:49] LABS: Anion Gap 7 (5-15); Carbon Dioxide 29 mmol/L (20-31)
[2024-10-03 13:50] LABS: Calcium 10.3 mg/dL (8.7-10.4)
[2024-10-03 13:54] LABS: BUN/Creatinine Ratio 9.7 (10.0-20.0); Blood Urea Nitrogen 11 mg/dL (9-23)
[2024-10-03 13:55] LABS: Magnesium 1.9 mg/dL (1.6-2.6)
[2024-10-03 13:56] LABS: Phosphorus 3.3 mg/dL (2.4-5.1)
[2024-10-03 14:01] LABS: Glucose 110 mg/dL (74-106)
--- NOTE | 2024-10-03 16:12 | MEDREC ---
[facility] Intervention Section I [facility] Intervention: Review courses of therapy (PLEASE CONSIDER D/C FLAGYL IN ABSENCE OF BACTERIAL INFECTION) LEIF HUMPHRIES PHARMACIST Oct 03, 2024 16:12
[2024-10-03] MEDS: hydrALAZINE HCL 20 MG/ML VL IV PRN (18:00)
[2024-10-03] MEDS: Ensure Enlive Chocolate 8oz Bottle PO SCH (18:22)
[2024-10-04 01:00] VITALS: BP 151/70; PULSE 74; RESP 19; TEMP 98.4; O2SAT 99
[2024-10-04 05:00] VITALS: BP 156/72; PULSE 72; RESP 18; TEMP 98.2; O2SAT 96
[2024-10-04 08:00] VITALS: PULSE 77; RESP 19; O2SAT 98
--- NOTE | 2024-10-04 12:10 | DVHDS2 ---
Discharge Summary Date of Admission Oct 01, 2024 at 16:24 Date of Discharge: Oct 04, 2024 Labs/Diagnostic Data: Laboratory Results Test 10/03/24 13:05 10/02/24 06:12 10/01/24 16:15 Sodium Level 140 mmol/L (136-145) Potassium Level 3.6 mmol/L (3.5-5.1) Chloride Level 104 mmol/L (98-107) Carbon Dioxide Level 29 mmol/L (20-31) Anion Gap 7 (5-15) Blood Urea Nitrogen 11 mg/dL (9-23) Creatinine 1.13 mg/dL (0.550-1.02) Glomerular Filtration Rate Calc 52 mL/min (>90) BUN/Creatinine Ratio 9.7 (10.0-20.0) Serum Glucose 110 mg/dL (74-106) Calcium Level 10.3 mg/dL (8.7-10.4) Phosphorus Level 3.3 mg/dL (2.4-5.1) Magnesium Level 1.9 mg/dL (1.6-2.6) White Blood Count 6.1 10^3/uL (4.4-10.8) Red Blood Count 3.95 10^6/uL (4.0-5.20) Hemoglobin 12.8 g/dL (12.2-16.2) Hematocrit 38.9 % (36.0-46.0) Mean Corpuscular Volume 98.3 fL (80.0-100.0) Mean Corpuscular Hemoglobin 32.4 pg (28.0-32.0) Mean Corpuscular Hemoglobin Concent 33.0 g/dL (32.0-36.0) Red Cell Distribution Width 14.8 % (11.8-14.3) Platelet Count 109 10^3/uL (140-450) Mean Platelet Volume 10.2 fL (6.9-10.8) Neutrophils (%) (Auto) 45.4 % (37.0-80.0) Lymphocytes (%) (Auto) 36.6 % (10.0-50.0) Monocytes (%) (Auto) 11.8 % (0.0-12.0) Eosinophils (%) (Auto) 5.5 % (0.0-7.0) Basophils (%) (Auto) 0.7 % (0.0-2.0) Neutrophils # (Auto) 2.8 10 ^3/uL (1.6-8.6) Lymphocytes # (Auto) 2.2 10 ^3/uL (0.4-5.4) Monocytes # (Auto) 0.7 10 ^3/uL (0-1.3) Eosinophils # (Auto) 0.3 10 ^3/uL (0-0.8) Basophils # (Auto) 0 10 ^3/uL (0-0.2) Nucleated Red Blood Cells 0.1 % Lipase 37 U/L (12-53) Urine Color Light-yellow (Yellow) Urine Clarity Clear (Clear) Urine pH 6.5 (5.0-9.0) Urine Specific [place] 1.016 (1.001-1.035) Urine Protein Negative (Negative) Urine Ketones 1+ (Negative) Urine Blood Negative /uL (Negative) Urine Nitrite Negative (Negative) Urine Bilirubin Negative (Negative) Urine Urobilinogen Normal mg/dL (Negative) Urine Leukocyte Esterase Negative /uL (Negative) Urine RBC 5 /hpf (0 - 4) Urine Microscopic WBC 1 /HPF (0-5) Urine Squamous Epithelial Cells Few /hpf (<5) Urine Bacteria None seen /hpf (None Seen) Urine Hyaline Casts Few /lpf (0 - 2) Urine Glucose Normal mg/dL (Normal) Other Laboratory Tests 10/03/24 13:05 10/02/24 06:12 Brief Hx & Hospital Course: Patient is a 69 year old female with a hx of [place], HTN who is presenting to the ED with N/V/D and abdominal pain x onset yesterday. Patient states that the pain is nonradiating, experiences cramping, and the pain is a 8/10. Patient also notes that diarrhea is getting worse and now is experiencing nausea with associated vomiting. Patient denies hematochezia. While in the emergency department the patient was evaluated by the provider, Labs, vital signs, and imagining monitored. Patient was admitted on 10/01/2024 for intractable abdominal pain. Patient has underlying history of GERD. Patient also has a history of cannabis induced hyperemesis. Patient states she has been smoking weed for many years and does not believe it is what is triggering her symptoms. Patient received IV Reglan and IV fluids. Patient also received antiemetics. Patient condition improved. Patient was cleared for discharge. She will follow-up with her PCP in 1 week. The patient received proper medical treatment and medications. Vital signs, Imaging and Laboratory Work was monitored daily. All consults recommendations were followed as provided. There were no complaints or new complaints upon discharge, all questions and concerns were answered. Patient was advised to return to the ER or call 911 if any headaches, dizziness, shortness of breath, chest pain, bleeding, fevers, or worsening of medical condition. Patient/Family was counseled about treatment plan, medications, possible side effects, patient verbalized understanding. All questions were answered to the best of my ability. The patient symptoms improved and they are okay to be DC. Condition at Discharge: Stable Final Diagnosis/Problems List Intractable nausea and vomiting canabis induced hyperemesis GERD Benign Essential HTN Liver cirrhosis Discharge Disposition: Home Discharge Instruct/Medications Diet: Cardiac 2g Na,low cholest Activity: No Restrictions, As Tolerated Discharge Statement: "Patient was advised to return to the ER or call 911 if any headaches, dizziness, shortness of breath, chest pain, abdominal pain, bleeding, fevers, or worsening of medical condition. Patient was counseled about treatment plan, medications, possible side effects, patientverbalized understanding. All questions were answered to the best of my ability. This discharge took greater then 30 minutes in planning, reviewing documentation, counseling the patient, and discussing with other team members." ASSESSMENT ASSESSMENT Assessment Intractable nausea and vomiting canabis induced hyperemesis TRISTAN KELLEY NP Oct 04, 2024 12:10
[2024-10-04] MEDS ORDERED: LOSA-534 PO (12:33)
[2024-10-04 12:52] VITALS: BP 146/85; PULSE 98; RESP 19; TEMP 98.3; O2SAT 95
== END 2024-10-04 13:30 | disposition home or self-care (01) | DRG 392 ==
LOC: ER 13:59 → EDBD 13:59 → EDUNIT# 13:59 → OVERFLOW 16:24 → TELE-EAST 16:29
PROVIDERS: ADMIT Internal Medicine; ATTEND Nurse Practitioner
DX: R11.2 Nausea with vomiting, unspecified (principal); F12.90 Cannabis use, unspecified, uncomplicated; G90.89 Other disorders of autonomic nervous system; K21.9 Gastro-esophageal reflux disease without esophagitis; J44.9 Chronic obstructive pulmonary disease, unspecified; I10 Essential (primary) hypertension; K74.60 Unspecified cirrhosis of liver; Z88.5 Allergy status to narcotic agent; Z79.891 Long term (current) use of opiate analgesic; Z79.899 Other long term (current) drug therapy; Z90.710 Acquired absence of both cervix and uterus; I25.2 Old myocardial infarction
CPT/HCPCS: 36415; 74177; 80048; 81001; 83690; 83735; 84100; 85025; 96361; 96374; 96375; G0378; J2405; J2470